=== PATIENT | female | born 1955 | race Caucasian/White ===

== ENCOUNTER 2018-02-19 15:54 | Emergency (ER) | payer OTHER, SELFPAY ==
[2018-02-19 15:55] VITALS: BP 130/84; PULSE 92; RESP 16; TEMP 36.7; O2SAT 98; BMI 29.7
--- NOTE | 2018-02-19 16:11 | ED.ABDPAIN ---
HPI - Abdominal Pain <JOHN Ku-BC - Last Filed: 02/19/18 22:15> General Chief Complaint: Abdominal Pain Stated Complaint: THINKS KIDNEY STONES ARE ACTING UP Time Seen by Provider: 02/19/18 16:11 Source: patient Mode of arrival: ambulatory Limitations: no limitations History of Present Illness HPI narrative: Patient presents with left-sided flank pain. She states that she had a kidney stone about 6 months ago and this feels exactly like that. It started this morning. She denies any fevers or diarrhea. She does complain of nausea and vomiting when the pain is bad. She also complains of lightheadedness when the pain is bad. Pain comes in spasms in her left side. She denies any chest pain or shortness of breath. She denies any other belly pain other than her flank pain. She denies urinary urgency, frequency or dysuria. Related Data Home Medications Medication Instructions Recorded Confirmed Nitrox 1 dose PO DAILY 02/19/18 02/19/18 [place] 3-6-9 1 dose DAILY 02/19/18 02/19/18 Vitamin D Oil 1 dose DAILY 02/19/18 02/19/18 multivitamin 1 tab PO DAILY 02/19/18 02/19/18 Previous Rx's Medication Instructions Recorded ondansetron 4 mg PO Q6H PRN #10 tab 02/19/18 Allergies Allergy/AdvReac Type Severity Reaction Status Date / Time oxycodone [OXYCODONE] AdvReac Mild NAUSEA, Verified 02/19/18 16:02 VOMITING Review of Systems <JOHN Ku- - Last Filed: 02/19/18 22:15> Review of Systems GENERAL: Denies chills, fatigue, malaise, fever, sweats. HEENT: Denies sinus pain, ear pain, sore throat, difficulty swallowing, dizziness. RESPIRATORY: Denies dyspnea, cough, wheezing, hemoptysis, sputum. CARDIOVASCULAR: Denies chest pain, palpitations, orthopnea, edema, GASTROINTESTINAL: See HPI : See HPI MUSCULOSKELETAL: denies weakness, joint pain, or bony pain SKIN: Denies rash, skin lesions, or other NEUROLOGIC: Denies weakness, headache, numbness, change in speech, confusion, seizures, incoordination. PSYCHIATRIC: No concerning psychosocial issues. 12 point review of systems is negative except for those stated above Exam <JOHN Ku-BC - Last Filed: 02/19/18 22:15> Narrative Exam Narrative: GENERAL: This is a well-nourished, well-developed patient, no acute distress. HEAD: Atraumatic. Normocephalic. No temporal or scalp tenderness. EYES: Pupils equal round and reactive. Extraocular motions intact. No scleral icterus. No injection or drainage. ENT: Nose without bleeding, purulent drainage or septal hematoma. Throat without erythema, tonsillar hypertrophy or exudate. Uvula midline. Airway patent. NECK: Trachea midline. No JVD or lymphadenopathy. Supple, nontender, no meningeal signs. CARDIOVASCULAR: Regular rate and rhythm without murmurs, gallops, or rubs. RESPIRATORY: Clear to auscultation. Breath sounds equal bilaterally. No wheezes, rales, or rhonchi. GASTROINTESTINAL: Abdomen soft, non-tender, nondistended. No hepato-splenomegaly, or palpable masses. No guarding. EXTREMITIES: No clubbing, cyanosis, or edema. No joint tenderness, effusion, or edema noted. BACK: Nontender without deformity or crepitance. Flank tenderness noted on left side. No CVA tenderness on right side. NEURO: AOx3. SKIN: No rash or erythema. Initial Vital Signs Initial Vital Signs: Vital Signs Temperature 98.1 F 02/19/18 15:55 Pulse Rate 92 H 02/19/18 15:55 Respiratory Rate 16 02/19/18 15:55 Blood Pressure 130/84 H 02/19/18 15:55 Pulse Oximetry 98 02/19/18 15:55 <Navin Giordano DO - Last Filed: 03/02/18 08:48> Initial Vital Signs Initial Vital Signs: Vital Signs Temperature 98.1 F 02/19/18 15:55 Pulse Rate 92 H 02/19/18 15:55 Respiratory Rate 16 02/19/18 15:55 Blood Pressure 130/84 H 02/19/18 15:55 Pulse Oximetry 98 02/19/18 15:55 Course <JOHN Ku-BC - Last Filed: 02/19/18 22:15> Hospital Course: Patient presented with flank pain, bleeding she had a repeat kidney stone. She had an IV inserted, lab work drawn, was given fluids and Zofran. The urine sample was obtained. She had a CT scan done to evaluate for possible stone, which came back negative. She passed a p.o. challenge at the end of her stay, keeping down food and fluids. I checked on her multiple times throughout her emergency department stay, she stated comfort. At the end she requested to go home. I offered her further workup given the fact that she still has pain yet did not have a stone, the patient declined further workup and stated she wanted go home. Discussed at length with patient follow-up cautions of return precautions including fever, worsening pain, inability take down fluids. Orders Ordered: Discontinued Medications Sodium Chloride (Normal Saline 0.9%) 1,000 mls @ 150 mls/hr IV CONT ANDREW Last Infusion: 02/19/18 18:13 Dose: 0 mls/hr Admin: 02/19/18 16:51 Dose: 150 mls/hr Ondansetron HCl (Zofran) 4 mg IV NOW ONE Stop: 02/19/18 16:50 Last Admin: 02/19/18 16:51 Dose: 4 mg Vital Signs - 8 hr 02/19/18 15:55 02/19/18 19:30 02/19/18 20:10 Temperature 98.1 F 97.4 F L Pulse Rate 92 H 76 78 Respiratory Rate 16 12 18 Blood Pressure 130/84 H 134/78 H Blood Pressure [Left Arm] 130/71 H Pulse Oximetry 98 97 99 <Navin Giordano, DO - Last Filed: 03/02/18 08:48> Orders Ordered: Discontinued Medications Sodium Chloride (Normal Saline 0.9%) 1,000 mls @ 150 mls/hr IV CONT ANDREW Last Infusion: 02/19/18 18:13 Dose: 0 mls/hr Admin: 02/19/18 16:51 Dose: 150 mls/hr Ondansetron HCl (Zofran) 4 mg IV NOW ONE Stop: 02/19/18 16:50 Last Admin: 02/19/18 16:51 Dose: 4 mg Vital Signs - 8 hr 02/19/18 15:55 02/19/18 19:30 02/19/18 20:10 Temperature 98.1 F 97.4 F L Pulse Rate 92 H 76 78 Respiratory Rate 16 12 18 Blood Pressure 130/84 H 134/78 H Blood Pressure [Left Arm] 130/71 H Pulse Oximetry 98 97 99 MDM - Abdominal Pain <Juani Carmen, BLACK [employer] ROLLER-BC - Last Filed: 02/19/18 22:15> Differential Diagnosis Differential diagnosis: Likely abdominal pain, calculus of kidney and constipation Lab Data Attestation: I reviewed the patient's lab results. Result diagrams: 02/19/18 16:27 02/19/18 16:27 Lab Results 02/19/18 02/19/18 Range/Units 16:27 16:27 WBC 7.0 (4.5-11.0) X10^3/uL RBC 4.26 (4.0-5.2) X10^6/uL Hgb 13.1 (12.0-16.0) g/dL Hct 39.4 (36-46) % MCV 92.5 (80-100) fL MCH 30.6 (26-34) PG MCHC 33.1 (30-36) % RDW 13.7 (11.6-14.8) % Plt Count 252 (150-400) X10^3/uL Neut % (Auto) 70.0 (50-75) % Lymph % (Auto) 22.9 L (25-40) % [place] % (Auto) 5.1 (3-14) % Eos % (Auto) 1.1 L (2-4) % Baso % (Auto) 0.9 (0-2) % Neut # (Auto) 4900 (1645-3583) /uL Sodium 139 (137-145) mmol/L Potassium 4.1 (3.4-5.1) mmol/L Chloride 103 (98-107) mmol/L Carbon Dioxide 27 (22-32) mmol/L BUN 10 (7-17) mg/dL Creatinine 0.70 (0.52-1.04) mg/dL Estimated GFR > 60.0 (>60) mL/min BUN/Creatinine Ratio 14.3 (6-22) Glucose 107 (80-110) mg/dL Calcium 9.3 (8.4-10.2) mg/dL Total Bilirubin 1.0 (0.2-1.3) mg/dL AST 31 (14-36) IU/L ALT 33 (9-52) IU/L Alkaline Phosphatase 73 (38-126) U/L Total Protein 6.8 (6.3-8.2) g/dL Albumin 3.8 (3.5-5.0) g/dL Globulin 3.0 (1.7-4.1) g/dL Albumin/Globulin Ratio 1.3 (1.0-2.8) Lipase 34 (23-300) U/L Imaging Data CT scan - pelvis: Radiologist's impression: [address] [address] [address] Scan Report Signed Patient: Luz Marina Rodriguez MR#: [id number] : 1955 Acct:[id number] Age/Sex: 62 / F Date of Service: 02/19/18 Loc: ED Accession Number: [id number] Procedure: CT kidney ureter bladder (KUB) Ordering Provider: Juani CarmenP- PROCEDURE: CT KIDNEY URETER BLADDER (KUB) INDICATIONS: flank pain, suspected nephrolithiasis TECHNIQUE: Noncontrast 5 mm thick sections acquired from the diaphragms to the symphysis. 5 mm thick coronal and sagittal reformats were then performed. For radiation dose reduction, the following was used: automated exposure control, adjustment of mA and/or kV according to patient size. COMPARISON: [facility], CT, CT ABDOMEN ADRENAL PROTOCOL, 09/22/2017, 10:14. FINDINGS: Image quality: Excellent. Lung bases: Lung bases are clear. Heart size is normal. Urinary system: Both kidneys are normal in size. No kidney stones. No hydronephrosis or perinephric fat stranding. Both ureters appear non-dilated throughout their expected courses. Bladder wall thickness is normal; no calcified bladder stones. Other solid organs: Liver is normal in size. Gallbladder is present. Pancreas is normal in contours. Spleen is normal in size. Again noted is a 2 cm right renal nodule which demonstrates low density consistent with a benign adrenal adenoma. Peritoneum and bowel: Diverticulosis. No evidence of acute diverticulitis. There is wall thickening in the proximal ascending colon which is indeterminate. A normal appendix is identified. Postoperative changes in the stomach. Nodes and vessels: No retroperitoneal or mesenteric adenopathy by size criteria. Aorta and inferior vena cava are normal in caliber. Abdominal wall: No ventral hernias. Pelvis: No free pelvic fluid. No inguinal hernias or adenopathy. Bones: No suspicious bony lesions. No vertebral body compression fractures. Right total hip arthroplasty. IMPRESSION: 1. Diverticulosis with no evidence of acute diverticulitis. No renal or ureteral calculi. No etiology for the patient's left flank pain identified. 2. Wall thickening in the ascending colon is indeterminate. Consider correlation with colonoscopy if screening colonoscopy has not been recently performed. 3. Stable right adrenal nodule consistent with a benign adrenal adenoma. Dictated by: Ernst Bowman M.D. on 02/19/2018 at 18:06 Approved by: Ernst Bowman M.D. on 02/19/2018 at 18:14 ECG Data Attestation: I personally reviewed and interpreted this ECG as follows: Interpretation: Normal sinus rhythm. Ventricular rate 64. No ST changes. ME interval 167 MDM Narrative Medical decision making narrative: Patient had thorough evaluation the emergency department including a CT scan which showed no cause of flank pain, CBC CMP and lipase which all came back normal. EKG came back within sinus rhythm. Her urine had no indications of infection. She declined any further workup for vomiting at this point time and states she will come back if she had to. I gave her prescription of Zofran and discussed return precautions of worsening abdominal pain, fever, inability keep down fluids. <Navin Giordano, DO - Last Filed: 03/02/18 08:48> Lab Data Lab Results 02/19/18 02/19/18 Range/Units 16:27 16:27 WBC 7.0 (4.5-11.0) X10^3/uL RBC 4.26 (4.0-5.2) X10^6/uL Hgb 13.1 (12.0-16.0) g/dL Hct 39.4 (36-46) % MCV 92.5 (80-100) fL MCH 30.6 (26-34) PG MCHC 33.1 (30-36) % RDW 13.7 (11.6-14.8) % Plt Count 252 (150-400) X10^3/uL Neut % (Auto) 70.0 (50-75) % Lymph % (Auto) 22.9 L (25-40) % [place] % (Auto) 5.1 (3-14) % Eos % (Auto) 1.1 L (2-4) % Baso % (Auto) 0.9 (0-2) % Neut # (Auto) 4900 (3528-7229) /uL Sodium 139 (137-145) mmol/L Potassium 4.1 (3.4-5.1) mmol/L Chloride 103 (98-107) mmol/L Carbon Dioxide 27 (22-32) mmol/L BUN 10 (7-17) mg/dL Creatinine 0.70 (0.52-1.04) mg/dL Estimated GFR > 60.0 (>60) mL/min BUN/Creatinine Ratio 14.3 (6-22) Glucose 107 (80-110) mg/dL Calcium 9.3 (8.4-10.2) mg/dL Total Bilirubin 1.0 (0.2-1.3) mg/dL AST 31 (14-36) IU/L ALT 33 (9-52) IU/L Alkaline Phosphatase 73 (38-126) U/L Total Protein 6.8 (6.3-8.2) g/dL Albumin 3.8 (3.5-5.0) g/dL Globulin 3.0 (1.7-4.1) g/dL Albumin/Globulin Ratio 1.3 (1.0-2.8) Lipase 34 (23-300) U/L Discharge Plan Departure Patient Disposition: Home, Self-Care Clinical Impression: Vomiting, Acute left flank pain Discharge Date/Time: 02/19/18 20:32 Interventions: ED Discharge Assessment Last Done: 02/19/18 20:10 Instructions: DI for Abdominal Pain-Adult, DI for Vomiting -- Adult Activity Restrictions/Additional Instructions: You came in today with flank pain and vomiting. We did a CT scan of your abdomen and pelvis which found no kidney stone. Your urine test and blood work came back normal. I have given you a prescription for Zofran which is for nausea and vomiting. I would like you to follow up with her primary care provider. Come back to the emergency department if you have any sudden onset of chest pain, shortness of breath, confusion or severe pain. Follow-up if you cannot keep down fluids or if you develop fever. Prescriptions: New ondansetron 4 mg tablet,disintegrating 4 mg PO Q6H PRN (Reason: nausea and vomiting) Qty: 10 RF: 0 No Action multivitamin Tablet 1 tab PO DAILY RF: 0 Nitrox 1 dose PO DAILY RF: 0 [place] 3-6-9 1 dose DAILY RF: 0 Vitamin D Oil 1 dose DAILY RF: 0 Referrals: Teresa Sorensen PA-C [Primary Care Provider] - <Navin Giordano DO - Last Filed: 03/02/18 08:48> Cosign ED Attending Jaimee Attestation: I was immediately available in the department for consultation. This documentation has been reviewed and I agree with assessment and plan. I attempted to contact TAYLOR Carmen to see if the thickening of the ascending colon noted on CT scan was discussed with the patient because it was not clear from the documentation above. As I was unable to, I contacted the patient directly and left a voicemail message on 03/02/2018 at 8:45 a.m., requesting that she follow up with her primary provider for colonoscopy if she has not had one recently. Supervised by Navin Giordano DO
[2018-02-19] MEDS: ONDANSETRON 4 MG/2 ML INJ IV (16:51)
[2018-02-19] MEDS: SODIUM CHLORIDE 0.9% 1,000 ML 150 ML IV (16:51)
[2018-02-19 16:57] LABS: Add Manual Diff / Slide Review NO; Basophils Percent Auto 0.9 % (0-2); Eosinophils Percent Auto 1.1 % (2-4); Hematocrit 39.4 % (36-46); Hemoglobin 13.1 g/dL (12.0-16.0); Lymphocytes Percent Auto 22.9 % (25-40); Mean Corpuscular HGB Conc 33.1 % (30-36); Mean Corpuscular Hemoglobin 30.6 PG (26-34); Mean Corpuscular Volume 92.5 fL (80-100); Monocytes Percent Auto 5.1 % (3-14); Neutrophils Absolute Auto 4900 /uL (3000-5900); Platelet Count 252 X10^3/uL (150-400); Red Blood Cell Count 4.26 X10^6/uL (4.0-5.2); Red Cell Distribution Width 13.7 % (11.6-14.8)
[2018-02-19 17:02] LABS: Alanine Aminotransferase 33 IU/L (9-52); Albumin 3.8 g/dL (3.5-5.0); Albumin Globulin Ratio 1.3 (1.0-2.8); Alkaline Phosphatase 73 U/L (38-126); Aspartate Aminotransferase 31 IU/L (14-36); BUN Creatinine Ratio 14.3 (6-22); Blood Urea Nitrogen 10 mg/dL (7-17); Calcium 9.3 mg/dL (8.4-10.2); Carbon Dioxide 27 mmol/L (22-32); Chloride 103 mmol/L (98-107); Estimated Glomerular Filt Rate > 60.0 mL/min (>60); Glucose 107 mg/dL (80-110); HEMOLYSIS 17 (0-50); Lipase 34 U/L (23-300); Potassium 4.1 mmol/L (3.4-5.1); Sodium 139 mmol/L (137-145); Total Protein 6.8 g/dL (6.3-8.2)
--- NOTE | 2018-02-19 17:23 | DI.CT.S_ITS ---
PROCEDURE: CT KIDNEY URETER BLADDER (KUB) INDICATIONS: flank pain, suspected nephrolithiasis TECHNIQUE: Noncontrast 5 mm thick sections acquired from the diaphragms to the symphysis. 5 mm thick coronal and sagittal reformats were then performed. For radiation dose reduction, the following was used: automated exposure control, adjustment of mA and/or kV according to patient size. COMPARISON: [facility], CT, CT ABDOMEN ADRENAL PROTOCOL, 09/22/2017, 10:14. FINDINGS: Image quality: Excellent. Lung bases: Lung bases are clear. Heart size is normal. Urinary system: Both kidneys are normal in size. No kidney stones. No hydronephrosis or perinephric fat stranding. Both ureters appear non-dilated throughout their expected courses. Bladder wall thickness is normal; no calcified bladder stones. Other solid organs: Liver is normal in size. Gallbladder is present. Pancreas is normal in contours. Spleen is normal in size. Again noted is a 2 cm right renal nodule which demonstrates low density consistent with a benign adrenal adenoma. Peritoneum and bowel: Diverticulosis. No evidence of acute diverticulitis. There is wall thickening in the proximal ascending colon which is indeterminate. A normal appendix is identified. Postoperative changes in the stomach. Nodes and vessels: No retroperitoneal or mesenteric adenopathy by size criteria. Aorta and inferior vena cava are normal in caliber. Abdominal wall: No ventral hernias. Pelvis: No free pelvic fluid. No inguinal hernias or adenopathy. Bones: No suspicious bony lesions. No vertebral body compression fractures. Right total hip arthroplasty. IMPRESSION: 1. Diverticulosis with no evidence of acute diverticulitis. No renal or ureteral calculi. No etiology for the patient's left flank pain identified. 2. Wall thickening in the ascending colon is indeterminate. Consider correlation with colonoscopy if screening colonoscopy has not been recently performed. 3. Stable right adrenal nodule consistent with a benign adrenal adenoma. Dictated by: Ernst Bowman M.D. on 02/19/2018 at 18:06 Approved by: Ernst Bowman M.D. on 02/19/2018 at 18:14
--- NOTE | 2018-02-19 18:01 | ED_ITS ---
HPI - Abdominal Pain <JOHN Ku-BC - Last Filed: 02/19/18 22:15> General Chief Complaint: Abdominal Pain Stated Complaint: THINKS KIDNEY STONES ARE ACTING UP Time Seen by Provider: 02/19/18 16:11 Source: patient Mode of arrival: ambulatory Limitations: no limitations History of Present Illness HPI narrative: Patient presents with left-sided flank pain. She states that she had a kidney stone about 6 months ago and this feels exactly like that. It started this morning. She denies any fevers or diarrhea. She does complain of nausea and vomiting when the pain is bad. She also complains of lightheadedness when the pain is bad. Pain comes in spasms in her left side. She denies any chest pain or shortness of breath. She denies any other belly pain other than her flank pain. She denies urinary urgency, frequency or dysuria. Related Data Home Medications Medication Instructions Recorded Confirmed Nitrox 1 dose PO DAILY 02/19/18 02/19/18 Empire 3-6-9 1 dose DAILY 02/19/18 02/19/18 Vitamin D Oil 1 dose DAILY 02/19/18 02/19/18 multivitamin 1 tab PO DAILY 02/19/18 02/19/18 Previous Rx's Medication Instructions Recorded ondansetron 4 mg PO Q6H PRN #10 tab 02/19/18 Allergies Allergy/AdvReac Type Severity Reaction Status Date / Time oxycodone [OXYCODONE] AdvReac Mild NAUSEA, Verified 02/19/18 16:02 VOMITING Review of Systems <JOHN Ku- - Last Filed: 02/19/18 22:15> Review of Systems GENERAL: Denies chills, fatigue, malaise, fever, sweats. HEENT: Denies sinus pain, ear pain, sore throat, difficulty swallowing, dizziness. RESPIRATORY: Denies dyspnea, cough, wheezing, hemoptysis, sputum. CARDIOVASCULAR: Denies chest pain, palpitations, orthopnea, edema, GASTROINTESTINAL: See HPI : See HPI MUSCULOSKELETAL: denies weakness, joint pain, or bony pain SKIN: Denies rash, skin lesions, or other NEUROLOGIC: Denies weakness, headache, numbness, change in speech, confusion, seizures, incoordination. PSYCHIATRIC: No concerning psychosocial issues. 12 point review of systems is negative except for those stated above Exam <JOHN Ku-BC - Last Filed: 02/19/18 22:15> Narrative Exam Narrative: GENERAL: This is a well-nourished, well-developed patient, no acute distress. HEAD: Atraumatic. Normocephalic. No temporal or scalp tenderness. EYES: Pupils equal round and reactive. Extraocular motions intact. No scleral icterus. No injection or drainage. ENT: Nose without bleeding, purulent drainage or septal hematoma. Throat without erythema, tonsillar hypertrophy or exudate. Uvula midline. Airway patent. NECK: Trachea midline. No JVD or lymphadenopathy. Supple, nontender, no meningeal signs. CARDIOVASCULAR: Regular rate and rhythm without murmurs, gallops, or rubs. RESPIRATORY: Clear to auscultation. Breath sounds equal bilaterally. No wheezes , rales, or rhonchi. GASTROINTESTINAL: Abdomen soft, non-tender, nondistended. No hepato-splenomegaly , or palpable masses. No guarding. EXTREMITIES: No clubbing, cyanosis, or edema. No joint tenderness, effusion, or edema noted. BACK: Nontender without deformity or crepitance. Flank tenderness noted on left side. No CVA tenderness on right side. NEURO: AOx3. SKIN: No rash or erythema. Initial Vital Signs Initial Vital Signs: Vital Signs Temperature 98.1 F 02/19/18 15:55 Pulse Rate 92 H 02/19/18 15:55 Respiratory Rate 16 02/19/18 15:55 Blood Pressure 130/84 H 02/19/18 15:55 Pulse Oximetry 98 02/19/18 15:55 <Navin Giordano DO - Last Filed: 03/02/18 08:48> Initial Vital Signs Initial Vital Signs: Vital Signs Temperature 98.1 F 02/19/18 15:55 Pulse Rate 92 H 02/19/18 15:55 Respiratory Rate 16 02/19/18 15:55 Blood Pressure 130/84 H 02/19/18 15:55 Pulse Oximetry 98 02/19/18 15:55 Course <JOHN Ku-BC - Last Filed: 02/19/18 22:15> Hospital Course: Patient presented with flank pain, bleeding she had a repeat kidney stone. She had an IV inserted, lab work drawn, was given fluids and Zofran. The urine sample was obtained. She had a CT scan done to evaluate for possible stone, which came back negative. She passed a p.o. challenge at the end of her stay, keeping down food and fluids. I checked on her multiple times throughout her emergency department stay, she stated comfort. At the end she requested to go home. I offered her further workup given the fact that she still has pain yet did not have a stone, the patient declined further workup and stated she wanted go home. Discussed at length with patient follow-up cautions of return precautions including fever, worsening pain, inability take down fluids. Orders Ordered: Discontinued Medications Sodium Chloride (Normal Saline 0.9%) 1,000 mls @ 150 mls/hr IV CONT ANDREW Last Infusion: 02/19/18 18:13 Dose: 0 mls/hr Admin: 02/19/18 16:51 Dose: 150 mls/hr Ondansetron HCl (Zofran) 4 mg IV NOW ONE Stop: 02/19/18 16:50 Last Admin: 02/19/18 16:51 Dose: 4 mg Vital Signs - 8 hr 02/19/18 15:55 02/19/18 19:30 02/19/18 20:10 Temperature 98.1 F 97.4 F L Pulse Rate 92 H 76 78 Respiratory Rate 16 12 18 Blood Pressure 130/84 H 134/78 H Blood Pressure [Left Arm] 130/71 H Pulse Oximetry 98 97 99 <Navin Giordano, DO - Last Filed: 03/02/18 08:48> Orders Ordered: Discontinued Medications Sodium Chloride (Normal Saline 0.9%) 1,000 mls @ 150 mls/hr IV CONT ANDREW Last Infusion: 02/19/18 18:13 Dose: 0 mls/hr Admin: 02/19/18 16:51 Dose: 150 mls/hr Ondansetron HCl (Zofran) 4 mg IV NOW ONE Stop: 02/19/18 16:50 Last Admin: 02/19/18 16:51 Dose: 4 mg Vital Signs - 8 hr 02/19/18 15:55 02/19/18 19:30 02/19/18 20:10 Temperature 98.1 F 97.4 F L Pulse Rate 92 H 76 78 Respiratory Rate 16 12 18 Blood Pressure 130/84 H 134/78 H Blood Pressure [Left Arm] 130/71 H Pulse Oximetry 98 97 99 MDM - Abdominal Pain <Juani Carmen, RAW SAMPLER-BC - Last Filed: 02/19/18 22:15> Differential Diagnosis Differential diagnosis: Likely abdominal pain, calculus of kidney and constipation Lab Data Attestation: I reviewed the patient's lab results. Result diagrams: 02/19/18 16:27 02/19/18 16:27 Lab Results 02/19/18 02/19/18 Range/Units 16:27 16:27 WBC 7.0 (4.5-11.0) X10^3/uL RBC 4.26 (4.0-5.2) X10^6/uL Hgb 13.1 (12.0-16.0) g/dL Hct 39.4 (36-46) % MCV 92.5 (80-100) fL MCH 30.6 (26-34) PG MCHC 33.1 (30-36) % RDW 13.7 (11.6-14.8) % Plt Count 252 (150-400) X10^3/uL Neut % (Auto) 70.0 (50-75) % Lymph % (Auto) 22.9 L (25-40) % [place] % (Auto) 5.1 (3-14) % Eos % (Auto) 1.1 L (2-4) % Baso % (Auto) 0.9 (0-2) % Neut # (Auto) 4900 (2301-0684) /uL Sodium 139 (137-145) mmol/L Potassium 4.1 (3.4-5.1) mmol/L Chloride 103 (98-107) mmol/L Carbon Dioxide 27 (22-32) mmol/L BUN 10 (7-17) mg/dL Creatinine 0.70 (0.52-1.04) mg/dL Estimated GFR > 60.0 (>60) mL/min BUN/Creatinine Ratio 14.3 (6-22) Glucose 107 (80-110) mg/dL Calcium 9.3 (8.4-10.2) mg/dL Total Bilirubin 1.0 (0.2-1.3) mg/dL AST 31 (14-36) IU/L ALT 33 (9-52) IU/L Alkaline Phosphatase 73 (38-126) U/L Total Protein 6.8 (6.3-8.2) g/dL Albumin 3.8 (3.5-5.0) g/dL Globulin 3.0 (1.7-4.1) g/dL Albumin/Globulin Ratio 1.3 (1.0-2.8) Lipase 34 (23-300) U/L Imaging Data CT scan - pelvis: Radiologist's impression: [address] [address] [address] Scan Report Signed Patient: Luz Marina Rodriguez MR#: [id number] : 1955 Acct:[id number] Age/Sex: 62 / F Date of Service: 02/19/18 Loc: ED Accession Number: [id number] Procedure: CT kidney ureter bladder (KUB) Ordering Provider: Juani CarmenP- PROCEDURE: CT KIDNEY URETER BLADDER (KUB) INDICATIONS: flank pain, suspected nephrolithiasis TECHNIQUE: Noncontrast 5 mm thick sections acquired from the diaphragms to the symphysis. 5 mm thick coronal and sagittal reformats were then performed. For radiation dose reduction, the following was used: automated exposure control, adjustment of mA and/or kV according to patient size. COMPARISON: [facility], CT, CT ABDOMEN ADRENAL PROTOCOL, 09/22/2017 , 10:14. FINDINGS: Image quality: Excellent. Lung bases: Lung bases are clear. Heart size is normal. Urinary system: Both kidneys are normal in size. No kidney stones. No hydronephrosis or perinephric fat stranding. Both ureters appear non-dilated throughout their expected courses. Bladder wall thickness is normal; no calcified bladder stones. Other solid organs: Liver is normal in size. Gallbladder is present. Pancreas is normal in contours. Spleen is normal in size. Again noted is a 2 cm right renal nodule which demonstrates low density consistent with a benign adrenal adenoma. Peritoneum and bowel: Diverticulosis. No evidence of acute diverticulitis. There is wall thickening in the proximal ascending colon which is indeterminate. A normal appendix is identified. Postoperative changes in the stomach. Nodes and vessels: No retroperitoneal or mesenteric adenopathy by size criteria. Aorta and inferior vena cava are normal in caliber. Abdominal wall: No ventral hernias. Pelvis: No free pelvic fluid. No inguinal hernias or adenopathy. Bones: No suspicious bony lesions. No vertebral body compression fractures. Right total hip arthroplasty. IMPRESSION: 1. Diverticulosis with no evidence of acute diverticulitis. No renal or ureteral calculi. No etiology for the patient's left flank pain identified. 2. Wall thickening in the ascending colon is indeterminate. Consider correlation with colonoscopy if screening colonoscopy has not been recently performed. 3. Stable right adrenal nodule consistent with a benign adrenal adenoma. Dictated by: Ernst Bowman M.D. on 02/19/2018 at 18:06 Approved by: Ernst Bowman M.D. on 02/19/2018 at 18:14 ECG Data Attestation: I personally reviewed and interpreted this ECG as follows: Interpretation: Normal sinus rhythm. Ventricular rate 64. No ST changes. RI interval 167 MDM Narrative Medical decision making narrative: Patient had thorough evaluation the emergency department including a CT scan which showed no cause of flank pain, CBC CMP and lipase which all came back normal. EKG came back within sinus rhythm. Her urine had no indications of infection. She declined any further workup for vomiting at this point time and states she will come back if she had to. I gave her prescription of Zofran and discussed return precautions of worsening abdominal pain, fever, inability keep down fluids. <Navin Giordano, DO - Last Filed: 03/02/18 08:48> Lab Data Lab Results 02/19/18 02/19/18 Range/Units 16:27 16:27 WBC 7.0 (4.5-11.0) X10^3/uL RBC 4.26 (4.0-5.2) X10^6/uL Hgb 13.1 (12.0-16.0) g/dL Hct 39.4 (36-46) % MCV 92.5 (80-100) fL MCH 30.6 (26-34) PG MCHC 33.1 (30-36) % RDW 13.7 (11.6-14.8) % Plt Count 252 (150-400) X10^3/uL Neut % (Auto) 70.0 (50-75) % Lymph % (Auto) 22.9 L (25-40) % [place] % (Auto) 5.1 (3-14) % Eos % (Auto) 1.1 L (2-4) % Baso % (Auto) 0.9 (0-2) % Neut # (Auto) 4900 (9786-8562) /uL Sodium 139 (137-145) mmol/L Potassium 4.1 (3.4-5.1) mmol/L Chloride 103 (98-107) mmol/L Carbon Dioxide 27 (22-32) mmol/L BUN 10 (7-17) mg/dL Creatinine 0.70 (0.52-1.04) mg/dL Estimated GFR > 60.0 (>60) mL/min BUN/Creatinine Ratio 14.3 (6-22) Glucose 107 (80-110) mg/dL Calcium 9.3 (8.4-10.2) mg/dL Total Bilirubin 1.0 (0.2-1.3) mg/dL AST 31 (14-36) IU/L ALT 33 (9-52) IU/L Alkaline Phosphatase 73 (38-126) U/L Total Protein 6.8 (6.3-8.2) g/dL Albumin 3.8 (3.5-5.0) g/dL Globulin 3.0 (1.7-4.1) g/dL Albumin/Globulin Ratio 1.3 (1.0-2.8) Lipase 34 (23-300) U/L Discharge Plan Departure Patient Disposition: Home, Self-Care Clinical Impression: Vomiting, Acute left flank pain Discharge Date/Time: 02/19/18 20:32 Interventions: ED Discharge Assessment Last Done: 02/19/18 20:10 Instructions: DI for Abdominal Pain-Adult, DI for Vomiting -- Adult Activity Restrictions/Additional Instructions: You came in today with flank pain and vomiting. We did a CT scan of your abdomen and pelvis which found no kidney stone. Your urine test and blood work came back normal. I have given you a prescription for Zofran which is for nausea and vomiting. I would like you to follow up with her primary care provider. Come back to the emergency department if you have any sudden onset of chest pain, shortness of breath, confusion or severe pain. Follow-up if you cannot keep down fluids or if you develop fever. Prescriptions: New ondansetron 4 mg tablet,disintegrating 4 mg PO Q6H PRN (Reason: nausea and vomiting) Qty: 10 RF: 0 No Action multivitamin Tablet 1 tab PO DAILY RF: 0 Nitrox 1 dose PO DAILY RF: 0 Empire 3-6-9 1 dose DAILY RF: 0 Vitamin D Oil 1 dose DAILY RF: 0 Referrals: Teresa Sorensen PA-C [Primary Care Provider] - <Navin Giordano DO - Last Filed: 03/02/18 08:48> Cosign ED Attending Jaimee Attestation: I was immediately available in the department for consultation. This documentation has been reviewed and I agree with assessment and plan. I attempted to contact TAYLOR Carmen to see if the thickening of the ascending colon noted on CT scan was discussed with the patient because it was not clear from the documentation above. As I was unable to, I contacted the patient directly and left a voicemail message on 03/02/2018 at 8:45 a.m., requesting that she follow up with her primary provider for colonoscopy if she has not had one recently. Supervised by Navin Giordano DO
--- NOTE | 2018-02-19 19:26 | PC.NURSE ---
Patient tolerating 7-up with crackers;
[2018-02-19 19:30] VITALS: BP 130/71; PULSE 76; RESP 12; O2SAT 97
[2018-02-19 20:10] VITALS: BP 134/78; PULSE 78; RESP 18; TEMP 36.3; O2SAT 99
== END 2018-02-19 20:32 | disposition home or self-care (01) ==
PROVIDERS: Emergency Provider Nurse Practitioner Family; Family Provider Physician Assistant; PCP Physician Assistant
DX: R11.10 Vomiting, unspecified (principal); R10.9 Unspecified abdominal pain
CPT/HCPCS: 36591; 74176; 80053; 81003; 83690; 85025; 93005; 96361; 96374; 99283; 99285; J2405

== ENCOUNTER → 2018-04-08 12:51 | Outpatient (CLI) | payer OTHER, SELFPAY ==
--- NOTE | 2018-04-08 | DI.MG.S_ITS ---
BILATERAL DIGITAL SCREENING MAMMOGRAM 3D/2D WITH CAD: 04/08/2018 CLINICAL: Routine screening. Comparison is made to exams dated: 09/03/2016 mammogram - [facility] and 09/28/2014 mammogram - [facility]. The tissue of both breasts is predominantly fatty. Current study was also evaluated with a Computer Aided Detection (CAD) system. No significant masses, calcifications, or other findings are seen in either breast. There has been no significant interval change. IMPRESSION: NEGATIVE There is no mammographic evidence of malignancy. A 1 year screening mammogram is recommended. This exam was interpreted at Station ID: [id number]. NOTE: For mammograms, a report in lay terms will be sent to the patient. Approximately 15% of breast malignancies will not be visualized mammographically. In the management of a palpable breast mass, a negative mammogram must not discourage biopsy of a clinically suspicious lesion. Electronically Signed By: Ernst coronado/ruchi:04/09/2018 09:59:27 copy to: SANTOS BURGESS letter sent: Normal Exam ACR BI-RADS Category 1: Negative [id number]
--- NOTE | 2018-04-08 | DI.RAD.S_ITS ---
PROCEDURE: FL BARIUM SWALLOW INDICATIONS: DYSPHAGIA NAUSEA COMPARISON: None. FINDINGS: Function: There is normal esophageal peristalsis.-induced gastroesophageal reflux with Valsalva to the level above the tristan. There is normal transit of a calibrated barium tablet through the esophagus into the stomach. Morphology: Limited images of the stomach demonstrate an appearance consistent with history of gastric sleeve surgery. A moderate sliding hiatal hernia is present. Within the herniation is intermittently seen a 1 cm sized outpouching that has the appearance of an ulceration. IMPRESSION: 1. Moderate hiatal hernia with positive induced reflux. 2. Suspected ulceration in the herniated fundus of the stomach along the lesser curvature aspect. Finding could be related to prior surgical history however endoscopic evaluation is recommended. 3. Elongation and apparent constriction in the proximal body of the stomach compatible with surgical history. Dictated by: Alexandro Cueto M.D. on 04/08/2018 at 14:37 Approved by: Alexandro Cueto M.D. on 04/08/2018 at 14:49
== END ==
PROVIDERS: Family Provider Nurse Practitioner Family; PCP Nurse Practitioner Family; Visit Provider Physician Assistant
DX: Z12.31 Encounter for screening mammogram for malignant neoplasm of breast (principal); K21.9 Gastro-esophageal reflux disease without esophagitis; K44.9 Diaphragmatic hernia without obstruction or gangrene; R13.10 Dysphagia, unspecified; R11.0 Nausea
CPT/HCPCS: 74220; 77063; 77067

== ENCOUNTER 2018-10-15 11:59 | Emergency (ER) | payer OTHER, SELFPAY ==
[2018-10-15 12:05] VITALS: BP 126/53; PULSE 78; RESP 15; TEMP 36.8; O2SAT 100; BMI 29.9
--- NOTE | 2018-10-15 12:46 | ED.SYNCOPE ---
HPI - Syncope General Chief Complaint: Syncope Stated Complaint: fainted yesterday, told to be seen. Time Seen by Provider: 10/15/18 12:28 Source: patient Mode of arrival: ambulatory Limitations: no limitations History of Present Illness HPI narrative: Patient is a 63-year-old female who presents after syncopal episode yesterday. She was sitting talking with a builder when she suddenly passed out. She thinks that she is had a hypoglycemic episode. She had gastric sleeve 2 years ago, she has had hypoglycemic episodes. Yesterday she had breakfast at 8:30 a.m. nothing again until 230 after she passed out. She was feeling okay last night but today she says she just still does not feel quite right. No dizziness or lightheadedness today no heart palpitations. She does have acid reflux she has chronic ongoing acid reflux ever since her gastric sleeve surgery. No further episodes of syncope MD complaint: loss of consciousness Related Data Home Medications Medication Instructions Recorded Confirmed No Known Home Medications 10/15/18 10/15/18 Allergies Allergy/AdvReac Type Severity Reaction Status Date / Time oxycodone [OXYCODONE] AdvReac Mild NAUSEA, Verified 02/19/18 16:02 VOMITING Review of Systems Review of Systems ROS Unobtainable: All systems reviewed & are unremarkable except as noted in HPI and below Constitutional Denies chills, Denies fever(s), Denies lethargy and Denies weakness Eyes Denies change in vision, Denies eye discharge, Denies irritation and Denies loss of vision Cardiovascular Reports syncope, Denies dyspnea and Denies dyspnea on exertion Respiratory Denies cough, Denies dyspnea, Denies dyspnea on exertion and Denies wheezing Gastrointestinal Gastrointestinal: Denies abdominal pain, Denies change in bowel habits, Denies diarrhea, Denies nausea and Denies vomiting Genitourinary Denies hematuria, Denies flank pain, Denies urinary incontinence and Denies urinary urgency Integumentary/Breasts Denies pruritus, Denies erythema, Denies rash and Denies wounds Neurologic Reports syncope, Denies loss of vision and Denies weakness Allergic/Immunologic Denies wheezing PFSH Medical History GERD (gastroesophageal reflux disease) (Acute) Surgical History Status post gastrectomy (Acute) Social History Smoking Status: Never smoker alcohol intake: never substance use type: does not use Social History Smoking Status: Never smoker alcohol intake: never substance use type: does not use Exam Initial Vital Signs Initial Vital Signs: Vital Signs Temperature 98.3 F 10/15/18 12:05 Pulse Rate 78 10/15/18 12:05 Respiratory Rate 15 10/15/18 12:05 Blood Pressure 126/53 L 10/15/18 12:05 Pulse Oximetry 100 10/15/18 12:05 GENERAL: Well-appearing, well-nourished and in no acute distress. HEENT: Head atraumatic,EOMI, pupils reactive, CARDIOVASCULAR: Regular rate and rhythm without murmurs, rubs or gallops. RESPIRATORY: Breath sounds equal bilaterally, no wheezes rales or rhonchi. ABDOMEN: Soft, nontender. Normoactive bowel sounds all 4 quadrants. No guarding or rebound. EXTREMITIES: Normal range of motion, no clubbing or edema. Neurovascularly intact NEUROLOGICAL: Alert and oriented x4.Normal gait and speech. Cranial nerves II through XII grossly intact. SKIN: Warm, dry, no laceration, no petechiae, no rashes or lesions. Course Orders Ordered: ED Orders 10/15/18 12:07 EKG-12 Lead Routine 10/15/18 13:10 Complete Blood Count AUTO DIFF Stat Comprehensive Metabolic Panel Stat Troponin & CK Cardiac Panel Stat Discontinued Medications Sodium Chloride (Normal Saline 0.9%) 1,000 mls @ 1,000 mls/hr IV BOLUS ONE Stop: 10/15/18 13:42 Last Infusion: 10/15/18 14:10 Dose: 0 mls/hr Admin: 10/15/18 13:11 Dose: 1,000 mls/hr Ondansetron HCl (Zofran) 4 mg IV NOW ONE Stop: 10/15/18 12:44 Last Admin: 10/15/18 13:11 Dose: 4 mg Pantoprazole Sodium (Protonix) 40 mg IV NOW ONE Stop: 10/15/18 12:44 Last Admin: 10/15/18 13:11 Dose: 40 mg Vital Signs - 8 hr 10/15/18 12:05 10/15/18 13:07 10/15/18 14:03 Temperature 98.3 F Pulse Rate 78 77 64 Respiratory Rate 15 17 16 Blood Pressure 126/53 L Blood Pressure [Right Arm] 100/70 101/63 Pulse Oximetry 100 99 100 10/15/18 14:10 Temperature Pulse Rate 70 Respiratory Rate 15 Blood Pressure 101/63 Blood Pressure [Right Arm] Pulse Oximetry 98 MDM - Syncope Lab Data Attestation: I reviewed the patient's lab results. Result diagrams: 10/15/18 13:10 10/15/18 13:10 Lab Results 10/15/18 10/15/18 Range/Units 13:10 13:10 WBC 5.6 (4.5-11.0) X10^3/uL RBC 4.35 (4.0-5.2) X10^6/uL Hgb 13.3 (12.0-16.0) g/dL Hct 40.7 (36-46) % MCV 93.6 (80-100) fL MCH 30.5 (26-34) PG MCHC 32.6 (30-36) % RDW 14.0 (11.6-14.8) % Plt Count 242 (150-400) X10^3/uL Neut % (Auto) 54.6 (50-75) % Lymph % (Auto) 33.9 (25-40) % [place] % (Auto) 8.5 (3-14) % Eos % (Auto) 2.2 (2-4) % Baso % (Auto) 0.8 (0-2) % Neut # (Auto) 3000 (4196-1464) /uL Lymph # (Auto) 1900 (2107-1963) /uL [place] # (Auto) 500 (0-900) /uL Eos # (Auto) 100 (0-450) /uL Baso # (Auto) 0 (0-100) /uL Sodium 140 (137-145) mmol/L Potassium 4.1 (3.4-5.1) mmol/L Chloride 105 (98-107) mmol/L Carbon Dioxide 27 (22-32) mmol/L BUN 17 (7-17) mg/dL Creatinine 0.90 (0.52-1.04) mg/dL Estimated GFR > 60.0 (>60) mL/min BUN/Creatinine Ratio 18.9 (6-22) Glucose 113 H (80-110) mg/dL Calcium 8.8 (8.4-10.2) mg/dL Total Bilirubin 0.5 (0.2-1.3) mg/dL AST 28 (14-36) IU/L ALT 30 (9-52) IU/L Alkaline Phosphatase 74 (38-126) U/L Total Creatine Kinase 86 (30-135) U/L CK-MB (CK-2) TNP CK-MB (CK-2) Rel Index TNP Troponin I < 0.012 (0.01-0.034) ng/mL Total Protein 6.9 (6.3-8.2) g/dL Albumin 4.0 (3.5-5.0) g/dL Globulin 2.9 (1.7-4.1) g/dL Albumin/Globulin Ratio 1.4 (1.0-2.8) Point of Care Testing Glucose POC 112 Urine Dip Bedside Urine Glucose Negative Bedside Urine Bilirubin - Negative Bedside Urine Ketone - Negative Urine Specific [place] 1.025 Bedside Urine Occult Blood - Negative Bedside Urine pH 6.0 Bedside Urine Protein - Negative Bedside Urine Urobilinogen - Negative Bedside Urine Nitrite - Negative Bedside Urine Leukocytes - Negative Esterase ECG Data Attestation: I personally reviewed and interpreted this ECG as follows: Prior ECG tracings: available for review Interpretation: Normal sinus rhythm rate [address] changes no T-wave inversions similar to previous EKG CT interval 174 QTC 419 MDM Narrative Medical decision making narrative: No abnormality on blood work today. No the focal deficits. This time I do not believe she needs CT of the head. We discussed hypoglycemia and treatment for it including of small frequent snacks or meals. Discharge Plan Departure Patient Disposition: Home Clinical Impression: Vasovagal syncope Discharge Date/Time: 10/15/18 14:11 Interventions: ED Discharge Assessment Last Done: 10/15/18 14:10 Instructions: DI for Hypoglycemia Activity Restrictions/Additional Instructions: *You have been diagnosed with syncope *What to do: It is presumed that your episode yesterday is due from low blood sugar. Recommend that he eat small frequent snacks *Continue to take medications as directed *Follow up with your primary care provider in 2-3 days *Return to ER if you should have recurrent episodes of passing out, heart palpitations, or any new, worsening or concerning symptoms Prescriptions: No Action No Known Home Medications RF: 0
[2018-10-15 13:07] VITALS: BP 100/70; PULSE 77; RESP 17; O2SAT 99
[2018-10-15] MEDS: ONDANSETRON 4 MG/2 ML INJ IV (13:11)
[2018-10-15] MEDS: SODIUM CHLORIDE 0.9% 1,000 ML 1000 ML IV (13:11)
[2018-10-15] MEDS: PANTOPRAZOLE 40 MG VIAL IV (13:11)
[2018-10-15 13:15] LABS: Add Manual Diff / Slide Review NO; Basophils Absolute Auto 0 /uL (0-100); Basophils Percent Auto 0.8 % (0-2); Eosinophils Absolute Auto 100 /uL (0-450); Eosinophils Percent Auto 2.2 % (2-4); Hematocrit 40.7 % (36-46); Hemoglobin 13.3 g/dL (12.0-16.0); Lymphocytes Absolute Auto 1900 /uL (1100-4500); Lymphocytes Percent Auto 33.9 % (25-40); Mean Corpuscular HGB Conc 32.6 % (30-36); Mean Corpuscular Hemoglobin 30.5 PG (26-34); Mean Corpuscular Volume 93.6 fL (80-100); Monocytes Absolute Auto 500 /uL (0-900); Monocytes Percent Auto 8.5 % (3-14); Neutrophils Absolute Auto 3000 /uL (1500-7000); Neutrophils Percent Auto 54.6 % (50-75); Platelet Count 242 X10^3/uL (150-400); Red Blood Cell Count 4.35 X10^6/uL (4.0-5.2); White Blood Cell Count 5.6 X10^3/uL (4.5-11.0)
[2018-10-15 13:39] LABS: Alanine Aminotransferase 30 IU/L (9-52); Albumin Globulin Ratio 1.4 (1.0-2.8); Alkaline Phosphatase 74 U/L (38-126); Aspartate Aminotransferase 28 IU/L (14-36); BUN Creatinine Ratio 18.9 (6-22); Bilirubin Total 0.5 mg/dL (0.2-1.3); Blood Urea Nitrogen 17 mg/dL (7-17); Calcium 8.8 mg/dL (8.4-10.2); Carbon Dioxide 27 mmol/L (22-32); Chloride 105 mmol/L (98-107); Creatine Kinase 86 U/L (30-135); Estimated Glomerular Filt Rate > 60.0 mL/min (>60); Globulin 2.9 g/dL (1.7-4.1); Glucose 113 mg/dL (80-110); HEMOLYSIS 29 (0-50); Potassium 4.1 mmol/L (3.4-5.1); Sodium 140 mmol/L (137-145); Total Protein 6.9 g/dL (6.3-8.2)
[2018-10-15 13:55] LABS: Troponin I < 0.012 ng/mL (0.01-0.034)
[2018-10-15 14:03] VITALS: BP 101/63; PULSE 64; RESP 16; O2SAT 100
[2018-10-15 14:10] VITALS: BP 101/63; PULSE 70; RESP 15; O2SAT 98
== END 2018-10-15 14:11 | disposition home or self-care (01) ==
PROVIDERS: Emergency Provider Emergency Medicine; Family Provider Nurse Practitioner Family; PCP Nurse Practitioner Family
DX: R55 Syncope and collapse (principal)
CPT/HCPCS: 36591; 80053; 81003; 82550; 82962; 84484; 85025; 93005; 96361; 96374; 96375; 99283; 99284; C9113; J2405

== ENCOUNTER → 2018-11-16 13:45 | Outpatient (CLI) | payer OTHER, SELFPAY ==
--- NOTE | 2018-11-16 15:26 | PM.TREADMILL ---
Cardiac Stress Test Report Referral & Results Date Patient Seen: 11/16/18 Requesting provider: Ying Hernandez Indication: Syncope Rest ECG: Unremarkable Procedure Note: Today following both written and verbal informed consent the patient was exercised according to a standard Vincenzo protocol patient went for a total of S5 minutes 15 sec achieving a maximum heart rate of 163 maximum systolic blood pressure of 180. This is approximately 7.0 METS. Exercise was terminated at this point because of fatigue. Patient was also given Cardiolite through a previously started Hep-Lock IV by the nuclear cardiology technologist approximately 1 minute prior to the cessation of exercise. There are no ST-T segment changes identified Occasional to rare apparently conducted sinus beat as well as PVCs identified Patient seem to be somewhat orthostatic prior to start of treadmill but overall her blood pressure response to exercise was unremarkable. She was quickly tachycardic with exercise Functional aerobic impairment rating 0 on the sedentary scale Impression: No evidence of ischemia Average exercise capacity Please see perfusion imaging report as well Please note: Actual ECG tracings can be found in the PACS system.
--- NOTE | 2018-11-18 15:34 | DI.NM.S_ITS ---
DATE OF SERVICE: 11/16/2018 PROCEDURE: Exercise perfusion study. INDICATION: Syncope. RADIOPHARMACEUTICAL: 26.6 mCi technetium-99m Myoview IV was injected at stress, and 25.1 mCi technetium-99m Myoview IV was injected at rest. CARDIAC STRESS: Patient underwent exercise perfusion study under the supervision of an attending staff. Patient walked on Vincenzo protocol for 5 minutes 15 seconds and achieved 103% of target heart rate with normal blood pressure response, 7 METS of workload and functional aerobic impairment 0%. Patient felt fatigued. Baseline EKG revealed sinus rhythm. Stress EKG did not reveal any obvious inducible ischemic changes. Occasional PVCs. There was enhanced chronotropic response. RAW DATA: There appears to be appropriate uptake. GATED STUDY: Stress LV ejection fraction 94% with hyperdynamic LV. No regional wall motion abnormalities. Resting end-diastolic volume 65 mL. No transient ischemic dilatation. TID ratio 0.92, which is within normal limits. Lung/heart ratio was 0.33, which is within normal limits. MYOCARDIAL PERFUSION: Stress supine, resting supine, and stress prone images were compared to each other. It appears to be that patient has normal myocardial perfusion. CONCLUSION: This is a normal myocardial perfusion study. LV function is hyperdynamic. Overall, this is a low-risk myocardial perfusion scan. Luz Marina Rodriguez - TEMPERATURE CONTROL INSPECTOR/fn/kv doc#: [id number]/job#: [id number] dd: 11/18/2018 12:54:00 dt: 11/18/2018 15:27:00 DICTATING /COPIES TO: Alexandra Morelos MD COPIES MNE: [place]
== END ==
PROVIDERS: Family Provider Nurse Practitioner Family; PCP Nurse Practitioner Family; Visit Provider Nurse Practitioner Family
DX: R55 Syncope and collapse (principal)
CPT/HCPCS: 78452; 93016; 93017; 93018; A9502

== ENCOUNTER → 2019-04-14 15:55 | Outpatient (CLI) | payer OTHER, SELFPAY ==
--- NOTE | 2019-04-14 15:57 | DI.MG.S_ITS ---
BILATERAL DIGITAL SCREENING MAMMOGRAM 3D/2D WITH CAD: 04/14/2019 CLINICAL: Routine screening. Comparison is made to exams dated: 04/08/2018 mammogram, 09/03/2016 mammogram - [facility], and 09/28/2014 mammogram - [facility]. The tissue of both breasts is predominantly fatty. Current study was also evaluated with a Computer Aided Detection (CAD) system. No significant masses, calcifications, or other findings are seen in either breast. There has been no significant interval change. IMPRESSION: NEGATIVE There is no mammographic evidence of malignancy. A 1 year screening mammogram is recommended. This exam was interpreted at Station ID: [id number]. NOTE: For mammograms, a report in lay terms will be sent to the patient. Approximately 15% of breast malignancies will not be visualized mammographically. In the management of a palpable breast mass, a negative mammogram must not discourage biopsy of a clinically suspicious lesion. Electronically Signed By: Patricia reynolds/ruchi:04/14/2019 16:50:01 copy to: SANTOS BURGESS letter sent: Normal Exam ACR BI-RADS Category 1: Negative [id number]
== END ==
PROVIDERS: Family Provider Nurse Practitioner Family; PCP Nurse Practitioner Family; Visit Provider Nurse Practitioner Family
DX: Z12.31 Encounter for screening mammogram for malignant neoplasm of breast (principal)
CPT/HCPCS: 77063; 77067

== ENCOUNTER → 2019-10-27 12:35 | Outpatient (CLI) | payer OTHER, SELFPAY ==
--- NOTE | 2019-10-27 | DI.RAD.S_ITS ---
PROCEDURE: XR HIP W PEL IF DONE RT 2V INDICATIONS: RIGHT HIP PAIN TECHNIQUE: AP pelvis with lateral view(s) of the right hip(s). COMPARISON: None. FINDINGS: Bones: No fractures or dislocations. Pelvic ring appears intact. No suspicious bony lesions. Right hip arthroplasty in expected postoperative alignment. No evidence of hardware loosening or failure. Mild left hip joint degeneration. Lower lumbar spondylosis and facet arthropathy. Soft tissues: The visualized bowel gas pattern is normal. No suspicious soft tissue calcifications. IMPRESSION: Expected postoperative alignment of right hip arthroplasty. No evidence of hardware failure or loosening. Mild left hip degeneration Dictated by: Reagan Barnes M.D. on 10/27/2019 at 17:12 Approved by: Reagan Barnes M.D. on 10/27/2019 at 17:13
== END ==
PROVIDERS: Family Provider Nurse Practitioner Family; PCP Nurse Practitioner Family; Referring Provider Nurse Practitioner Family; Visit Provider Nurse Practitioner Family
DX: M25.551 Pain in right hip (principal); M16.12 Unilateral primary osteoarthritis, left hip; M47.816 Spondylosis without myelopathy or radiculopathy, lumbar region; Z96.641 Presence of right artificial hip joint
CPT/HCPCS: 73502

== ENCOUNTER 2020-03-16 15:54 | Emergency (ER) | payer OTHER, SELFPAY ==
[2020-03-16 15:57] VITALS: BP 131/85; PULSE 88; RESP 15; TEMP 36.4; O2SAT 96; BMI 30.7
--- NOTE | 2020-03-16 16:03 | ED_ITS ---
HPI - Nausea/Vomiting/Diarrhea <Naila Cruz PA-C - Last Filed: 03/16/20 23:29> General Chief complaint: Nausea/Vomiting/Diarrhea Stated complaint: NAUSEA DIARRHEA BAD HEADACHE LEFT SIDE LOWER PAIN Time Seen by Provider: 03/16/20 16:03 Source: patient Mode of arrival: Ambulatory Limitations: no limitations History of Present Illness HPI Narrative: Ms. Rodriguez is a 64-year-old woman with a history of gastric sleeve bypass, GERD and ureterolithiasis who presents to the emergency dep artment complaining of left-sided flank and abdominal pain and nausea as well as morning diarrhea for the past month, and a mild intermittent throbbing headache for the last week that is left-sided and in the back. She says that she came to the ED today because she had a big episode of vomiting last night and because she is scheduled to have a colonoscopy next week and they were concerned about h er ongoing diarrhea and other symptoms and advised her to come to the emergency department. She has had 5 episodes of vomiting in the past month. But she has had nausea consistently after every meal for the past month to the point where for the last few weeks she has only been eating popsicles and then lunch but inevitably feels nauseous after eating lunch. She also reports that when she wakes up in the morning for the past week she has a headache every morning and feels nauseous when she wakes. She has been taking Tylenol for her headache with good success on and off for the last 7 days she reports the headache is mostly there in the mornings but comes and goes; it is a 3/10 right now. She says that the left-sided pain she is having does not feel similar to when she had a stone previously, although does note that it does come and go and is not constant she describes it as a 7/10 and sharp. She reports that 2 weeks ago she started doing supplements with colloidal silver and Aloe juice as she also reports that she did due to ?dietary cleanses a little over a month ago just before her diarrhea symptoms started, she says she has done these cleanses before and has not had any problems with diarrhea or other symptoms. She notes that she works as a dispatcher for transport service and has to be very on it mentally and this has been difficult lately. She denies any fever, chills, dysuria, chest pain, shortness of breath or any other symptoms. MD complaint: nausea, vomiting, diarrhea, abdominal pain and other (headache) Onset (ago): week(s) (nausea, abd pain, diarrhea 4 weeks; headache 1 week, vomiting intermittent & last night) Description of Vomiting: food contents Description of Diarrhea: watery and mucousy (4-5 times a day in the mornings.) Related Data Previous Rx's Medication Instructions Recorded ondansetron HCl [Zofran] 4 mg PO Q6H #30 tab 03/16/20 Allergies Allergy/AdvReac Type Severity Reaction Status Date / Time oxycodone [OXYCODONE] AdvReac Mild NAUSEA, Verified 03/16/20 16:01 VOMITING Review of Systems <Naila Cruz PA-C - Last Filed: 03/16/20 23:29> Review of Systems Narrative: GENERAL: Denies chills, fatigue, malaise, fever, sweats. HEENT: Denies sinus pain, ear pain, sore throat, difficulty swallowing, dizziness. RESPIRATORY: Denies dyspnea, cough, wheezing, hemoptysis, sputum. CARDIOVASCULAR: Denies chest pain, palpitations, orthopnea, edema, GASTROINTESTINAL: Positive for intermittent nausea, often in the mornings and always after eating, intermittent vomiting (1 episode last night and 5 episodes in the last few weeks, left side abdominal pain, 3-4 episodes of diarrhea each morning, negative for constipation, melena. : Denies dysuria, frequency, incontinence, hematuria, urinary retention. MUSCULOSKELETAL: denies weakness, joint pain, or bony pain SKIN: Denies rash, skin lesions, or other NEUROLOGIC: Denies weakness, headache, numbness, change in speech, confusion, seizures, incoordination. PSYCHIATRIC: No concerning psychosocial issues. 12 point review of systems is negative except for those stated above Patient History <Naila Cruz PA-C - Last Filed: 03/16/20 23:29> Medical History GERD (gastroesophageal reflux disease) (Acute) Surgical History Status post gastrectomy (Acute) Social History Smoking Status: Never smoker alcohol intake: never substance use type: does not use Smoking Status: Never smoker Exam <Naila Cruz PA-C - Last Filed: 03/16/20 23:29> Narrative Exam Narrative: GENERAL: [64] year old patient appears stated age. Well- nourished, well-developed patient, in mild distress. HEAD: Atraumatic. Normocephalic. EYES: Pupils equal round and reactive. Extraocular motions intact. No scleral icterus. No injection or drainage. ENT: Nose without bleeding, purulent drainage. Throat without erythema, tonsillar hypertrophy or exudate. Airway patent. NECK: Trachea midline. Non tender CARDIOVASCULAR: Regular rate and rhythm without murmurs, gallops, or rubs. RESPIRATORY: Clear to auscultation. Breath sounds equal bilaterally. No wheezes, rales, or rhonchi. GASTROINTESTINAL: Abdomen soft, nondistended, she has mild tenderness in the left upper and left lower quadrants and the left lateral side. EXTREMITIES: No edema or joint tenderness. BACK: Nontender without deformity or crepitance. There is mild flank tenderness on the left. NEURO: AOx3. SKIN: No rash or erythema of visible areas Initial Vital Signs Initial Vital Signs: Vital Signs Temperature 97.6 F 03/16/20 15:57 Pulse Rate 88 03/16/20 15:57 Respiratory Rate 15 03/16/20 15:57 Blood Pressure 131/85 03/16/20 15:57 Pulse Oximetry 96 03/16/20 15:57 <Estrellita Cheatham DO - Last Filed: 03/21/20 08:14> Initial Vital Signs Initial Vital Signs: Vital Signs Temperature 97.6 F 03/16/20 15:57 Pulse Rate 88 03/16/20 15:57 Respiratory Rate 15 03/16/20 15:57 Blood Pressure 131/85 03/16/20 15:57 Pulse Oximetry 96 03/16/20 15:57 Scores <GEORGINA Ngo Last Filed: 03/16/20 23:29> GCS [place] coma scale eye opening: Spontaneous [place] coma scale verbal response: Orientated [place] coma scale motor response: Obey commands [place] coma scale total score: 15 Course <GEORGINA Ngo Last Filed: 03/16/20 23:29> Orders Ordered: Discontinued Medications Sodium Chloride (Normal Saline 0.9%) 1,000 mls @ 150 mls/hr IV CONT ANDREW Last Infusion: 03/16/20 19:33 Dose: 150 mls/hr Documented by: Admin: 03/16/20 16:14 Dose: 150 mls/hr Documented by: FERCHO Ondansetron HCl (Zofran) 4 mg IV NOW ONE Stop: 03/16/20 16:05 Last Admin: 03/16/20 16:14 Dose: 4 mg Documented by: FERCHO Vital Signs Vital signs: Vital Signs - 8 hr 03/16/20 15:57 03/16/20 16:30 03/16/20 17:00 Temperature 97.6 F Pulse Rate 88 72 74 Respiratory Rate 15 Blood Pressure 131/85 141/64 H Pulse Oximetry 96 98 98 03/16/20 17:01 03/16/20 17:47 03/16/20 19:32 Temperature Pulse Rate 71 81 Respiratory Rate 18 Blood Pressure 119/56 L 125/68 127/74 Pulse Oximetry 98 97 <Estrellita Cheatham, - Last Filed: 03/21/20 08:14> Orders Ordered: Discontinued Medications Sodium Chloride (Normal Saline 0.9%) 1,000 mls @ 150 mls/hr IV CONT [facility] Last Infusion: 03/16/20 19:33 Dose: 150 mls/hr Documented by: Admin: 03/16/20 16:14 Dose: 150 mls/hr Documented by: FERCHO Ondansetron HCl (Zofran) 4 mg IV NOW ONE Stop: 03/16/20 16:05 Last Admin: 03/16/20 16:14 Dose: 4 mg Documented by: FERCHO Vital Signs Vital signs: Vital Signs - 8 hr 03/16/20 15:57 03/16/20 16:30 03/16/20 17:00 Temperature 97.6 F Pulse Rate 88 72 74 Respiratory Rate 15 Blood Pressure 131/85 141/64 H Pulse Oximetry 96 98 98 03/16/20 17:01 03/16/20 17:47 03/16/20 19:32 Temperature Pulse Rate 71 81 Respiratory Rate 18 Blood Pressure 119/56 L 125/68 127/74 Pulse Oximetry 98 97 MDM - Nausea/Vomiting/Diarrhea <Naila Cruz PA-C - Last Filed: 03/16/20 23:29> Differential Diagnosis Differential diagnosis: Likely gastroenteritis, dehydration and other (GERD, nausea, vomiting, diarrhea, diverticulosis, ureterolithiasis, UTI) Medical Records Attestation: I reviewed the patient's medical records. Lab Data Attestation: I reviewed the patient's lab results. Result diagrams: 03/16/20 16:01 03/16/20 16:01 Labs: Lab Results 03/16/20 03/16/20 03/16/20 Range/Units 16:01 16: 16:01 WBC 6.1 (4.5-11.0) X10^3/uL RBC 4.33 (4.0-5.2) X10^6/uL Hgb 13.5 (12.0-16.0) g/dL Hct 39.9 (36-46) % MCV 92.3 (80-100) fL MCH 31.1 (26-34) PG MCHC 33.7 (30-36) % RDW 14.1 (11.6-14.8) % Plt Count 263 (150-400) X10^3/uL Neut % (Auto) 46.1 L (50-75) % Lymph % (Auto) 43.1 H (25-40) % Gilliam % (Auto) 7.4 (3-14) % Eos % (Auto) 2.3 (2-4) % Baso % (Auto) 1.1 (0-2) % Neut # (Auto) 2800 (7315-8053) /uL Lymph # (Auto) 2600 (5950-8134) /uL Gilliam # (Auto) 400 (0-900) /uL Eos # (Auto) 100 (0-450) /uL Baso # (Auto) 100 (0-100) /uL Sodium 138 (137-145) mmol/L Potassium 3.7 (3.4-5.1) mmol/L Chloride 106 (98-107) mmol/L Carbon Dioxide 26 (22-32) mmol/L BUN 11 (7-17) mg/dL Creatinine 0.76 (0.52-1.04) mg/dL Estimated GFR > 60.0 (>60) mL/min BUN/Creatinine Ratio 14.5 (6-22) Glucose 134 H (80-110) mg/dL Calcium 9.2 (8.4-10.2) mg/dL Magnesium 2.1 (1.6-2.3) mg/dL Total Bilirubin 0.5 (0.2-1.3) mg/dL AST 33 (14-36) IU/L ALT 21 (<35) IU/L Alkaline Phosphatase 78 (38-126) U/L Total Protein 7.1 (6.3-8.2) g/dL Albumin 4.1 (3.5-5.0) g/dL Globulin 3.0 (1.7-4.1) g/dL Albumin/Globulin Ratio 1.4 (1.0-2.8) Lipase 104 (23-300) U/L Urine Color Urine Appearance Urine pH (4.5-8.0) Ur Specific [place] (1.000-1.035) Urine Protein (Negative) Urine Glucose (UA) (Negative) g/dL Urine Ketones (NEGATIVE) Urine Occult Blood (Negative) Urine Nitrate (Negative) Urine Bilirubin (NEGATIVE) Urine Urobilinogen (0.2) E.U./dL Ur Leukocyte Esterase (NEGATIVE) Urine RBC (0-5/HPF) Urine WBC (0-5/HPF) Ur Squamous Epith Cells (0-5/HPF) Urine Bacteria (None) Ur Culture Indicated? 03/16/20 Range/Units 17:45 WBC (4.5-11.0) X10^3/uL RBC (4.0-5.2) X10^6/uL Hgb (12.0-16.0) g/dL Hct (36-46) % MCV (80-100) fL MCH (26-34) PG MCHC (30-36) % RDW (11.6-14.8) % Plt Count (150-400) X10^3/uL Neut % (Auto) (50-75) % Lymph % (Auto) (25-40) % Gilliam % (Auto) (3-14) % Eos % (Auto) (2-4) % Baso % (Auto) (0-2) % Neut # (Auto) (5237-1989) /uL Lymph # (Auto) (7092-3345) /uL Gilliam # (Auto) (0-900) /uL Eos # (Auto) (0-450) /uL Baso # (Auto) (0-100) /uL Sodium (137-145) mmol/L Potassium (3.4-5.1) mmol/L Chloride (98-107) mmol/L Carbon Dioxide (22-32) mmol/L BUN (7-17) mg/dL Creatinine (0.52-1.04) mg/dL Estimated GFR (>60) mL/min BUN/Creatinine Ratio (6-22) Glucose (80-110) mg/dL Calcium (8.4-10.2) mg/dL Magnesium (1.6-2.3) mg/dL Total Bilirubin (0.2-1.3) mg/dL AST (14-36) IU/L ALT (<35) IU/L Alkaline Phosphatase (38-126) U/L Total Protein (6.3-8.2) g/dL Albumin (3.5-5.0) g/dL Globulin (1.7-4.1) g/dL Albumin/Globulin Ratio (1.0-2.8) Lipase (23-300) U/L Urine Color Yellow Urine Appearance Clear Urine pH 6.0 (4.5-8.0) Ur Specific [place] 1.010 (1.000-1.035) Urine Protein Negative (Negative) Urine Glucose (UA) Negative (Negative) g/dL Urine Ketones Negative (NEGATIVE) Urine Occult Blood Trace-lysed (Negative) Urine Nitrate Negative (Negative) Urine Bilirubin Negative (NEGATIVE) Urine Urobilinogen 0.2 (0.2) E.U./dL Ur Leukocyte Esterase Negative (NEGATIVE) Urine RBC 0-1/hpf (0-5/HPF) Urine WBC 1-5/hpf (0-5/HPF) Ur Squamous Epith Cells 1-5 /hpf (0-5/HPF) Urine Bacteria Many (>30) H (None) Ur Culture Indicated? Specimen cultured Imaging Data CT scan - abdomen/pelvis: Attestation: I personally reviewed and interpreted this imaging study as follows: Radiologist's Impression: [address] [address] [address] Scan Report Signed Patient: Luz Marina Rodriguez LMR#: [id number] : 6Acct:[id number] Age/Sex: 64 / FDate of Service: 03/16/20 Loc: ED Accession Number: [id number] Procedure: CT abdomen pelvis w con Ordering Provider: Naila Cruz P.A-C PROCEDURE: CT ABDOMEN PELVIS W CON INDICATIONS: N/V/D L-side abd pain/flank pain TECHNIQUE: After the administration of intravenous contrast, 5 mm thick sections acquired from the diaphragm to the symphysis. 5 mm coronal and sagittal reformats were acquired. For radiation dose reduction, the following was used: automated exposure control, adjustment of mA and/or kV according to patient size. COMPARISON: [facility], CT, CT ABDOMEN ADRENAL PROTOCOL, 09/22/2017, 10:14. FINDINGS: Image quality: Excellent. ABDOMEN: Lung bases: Lung bases are clear. Heart size is normal. Solid organs: Hepatic steatosis. Gallbladder unremarkable. Biliary system is non dilated. Pancreas enhances normally. Spleen is normal in size and enhancement. Unchanged right adrenal adenoma Kidneys demonstrate normal size and enhancement, without hydronephrosis. Peritoneum and bowel: Postsurgical changes involving the stomach. Small hiatal hernia, unchanged. Colonic diverticulosis is seen without evidence of acute compli cation. No free fluid or air. Nodes and vessels: No retroperitoneal or mesenteric adenopathy by size criteria. Aorta and inferior vena cava are normal in size. Miscellaneous: No ventral hernias. PELVIS: Genitourinary: Bladder wall thickness is normal. Miscellaneous: No inguinal hernias or adenopathy. Bones: No suspicious bony lesions. No vertebral body compression fractures. IMPRESSION: Overall, no acute abnormality Hepatic steatosis Dictated by: Reagan Barnes M.D. on 03/16/2020 at 18:54 Approved by: Reagan Barnes M.D. on 03/16/2020 at 18:58 [facility] Narrative Medical decision making narrative: This is a fairly well-appearing 64-year-old woman with a history of GERD, sleeve gastrectomy, who presents with a 4 week history of morning diarrhea, frequent nausea after eating, multiple episodes of vomiting in the last few weeks including last night, and left-sided abdominal pain and left flank pain that has been going on for 4 weeks. She presented to the emergency department today because she had episode of vomiting last night and she feels like ?it is getting worse? she notably has a colonoscopy coming up in the next 2 weeks. Differential diagnoses that were considered and include gastroenteritis, dehydration, infectious colitis, ureterolithiasis, UTI, pyelonephritis, diverticulosis, GERD. Labs were grossly unremarkable, CT scan was negative for acute intra-abdominal process. It is possible that her pain could be due to her diverticulosis noted on CT scan however this seems unlikely given there are no other changes or suggestion of inflammation noted. Ureterolithiasis is less likely given the unremarkable urinalysis, and the location of her pain. It is also possible that the dietary cleanses that the patient did shortly before her symptoms began 1 month ago are responsible for upsetting her GI tract. Patient was unable to provide a stool sample today, and she was advised to follow-up with her primary care physician so that she can get this cultured. Patient reported ongoing chronic issues with GERD and reflux, but has tried ?everything under the sun and has settled on a regimen of Nexium and Pepcid that she takes as needed. Patient improved significantly after administration of some fluids and Zofran, saying she felt ?much better? and was ultimately discharged with a prescription for Zofran, referral for Gastroenterology, close PCP follow-up, emergency return precautions, all questions were answered. <Estrellita Cheatham, DO - Last Filed: 03/21/20 08:14> Lab Data Labs: Lab Results 03/16/20 03/16/20 03/16/20 Range/Units 16:01 16:01 16:01 WBC 6.1 (4.5-11.0) X10^3/uL RBC 4.33 (4.0-5.2) X10^6/uL Hgb 13.5 (12.0-16.0) g/dL Hct 39.9 (36-46) % MCV 92.3 (80-100) fL MCH 31.1 (26-34) PG MCHC 33.7 (30-36) % RDW 14.1 (11.6-14.8) % Plt Count 263 (150-400) X10^3/uL Neut % (Auto) 46.1 L (50-75) % Lymph % (Auto) 43.1 H (25-40) % Gilliam % (Auto) 7.4 (3-14) % Eos % (Auto) 2.3 (2-4) % Baso % (Auto) 1.1 (0-2) % Neut # (Auto) 2800 (1097-3814) /uL Lymph # (Auto) 2600 (7658-9320) /uL Gilliam # (Auto) 400 (0-900) /uL Eos # (Auto) 100 (0-450) /uL Baso # (Auto) 100 (0-100) /uL Sodium 138 (137-145) mmol/L Potassium 3.7 (3.4-5.1) mmol/L Chloride 106 (98-107) mmol/L Carbon Dioxide 26 (22-32) mmol/L BUN 11 (7-17) mg/dL Creatinine 0.76 (0.52-1.04) mg/dL Estimated GFR > 60.0 (>60) mL/min BUN/Creatinine Ratio 14.5 (6-22) Glucose 134 H (80-110) mg/dL Calcium 9.2 (8.4-10.2) mg/dL Magnesium 2.1 (1.6-2.3) mg/dL Total Bilirubin 0.5 (0.2-1.3) mg/dL AST 33 (14-36) IU/L ALT 21 (<35) IU/L Alkaline Phosphatase 78 (38-126) U/L Total Protein 7.1 (6.3-8.2) g/dL Albumin 4.1 (3.5-5.0) g/dL Globulin 3.0 (1.7-4.1) g/dL Albumin/Globulin Ratio 1.4 (1.0-2.8) Lipase 104 (23-300) U/L Urine Color Urine Appearance Urine pH (4.5-8.0) Ur Specific [place] (1.000-1.035) Urine Protein (Negative) Urine Glucose (UA) (Negative) g/dL Urine Ketones (NEGATIVE) Urine Occult Blood (Negative) Urine Nitrate (Negative) Urine Bilirubin (NEGATIVE) Urine Urobilinogen (0.2) E.U./dL Ur Leukocyte Esterase (NEGATIVE) Urine RBC (0-5/HPF) Urine WBC (0-5/HPF) Ur Squamous Epith Cells (0-5/HPF) Urine Bacteria (None) Ur Culture Indicated? 03/16/20 Range/Units 17:45 WBC (4.5-11.0) X10^3/uL RBC (4.0-5.2) X10^6/uL Hgb (12.0-16.0) g/dL Hct (36-46) % MCV (80-100) fL MCH (26-34) PG MCHC (30-36) % RDW (11.6-14.8) % Plt Count (150-400) X10^3/uL Neut % (Auto) (50-75) % Lymph % (Auto) (25-40) % Gilliam % (Auto) (3-14) % Eos % (Auto) (2-4) % Baso % (Auto) (0-2) % Neut # (Auto) (0367-0745) /uL Lymph # (Auto) (3369-6855) /uL Gilliam # (Auto) (0-900) /uL Eos # (Auto) (0-450) /uL Baso # (Auto) (0-100) /uL Sodium (137-145) mmol/L Potassium (3.4-5.1) mmol/L Chloride (98-107) mmol/L Carbon Dioxide (22-32) mmol/L BUN (7-17) mg/dL Creatinine (0.52-1.04) mg/dL Estimated GFR (>60) mL/min BUN/Creatinine Ratio (6-22) Glucose (80-110) mg/dL Calcium (8.4-10.2) mg/dL Magnesium (1.6-2.3) mg/dL Total Bilirubin (0.2-1.3) mg/dL AST (14-36) IU/L ALT (<35) IU/L Alkaline Phosphatase (38-126) U/L Total Protein (6.3-8.2) g/dL Albumin (3.5-5.0) g/dL Globulin (1.7-4.1) g/dL Albumin/Globulin Ratio (1.0-2.8) Lipase (23-300) U/L Urine Color Yellow Urine Appearance Clear Urine pH 6.0 (4.5-8.0) Ur Specific [place] 1.010 (1.000-1.035) Urine Protein Negative (Negative) Urine Glucose (UA) Negative (Negative) g/dL Urine Ketones Negative (NEGATIVE) Urine Occult Blood Trace-lysed (Negative) Urine Nitrate Negative (Negative) Urine Bilirubin Negative (NEGATIVE) Urine Urobilinogen 0.2 (0.2) E.U./dL Ur Leukocyte Esterase Negative (NEGATIVE) Urine RBC 0-1/hpf (0-5/HPF) Urine WBC 1-5/hpf (0-5/HPF) Ur Squamous Epith Cells 1-5 /hpf (0-5/HPF) Urine Bacteria Many (>30) H (None) Ur Culture Indicated? Specimen cultured Discharge Plan Departure Patient Disposition: Home Clinical Impression: Diverticulosis Nausea & vomiting Qualifiers: Vomiting type: unspecified Vomiting Intractability: non-intractable Qualified Code(s): R11.2 - Nausea with vomiting, unspecified Diarrhea Qualifiers: Diarrhea type: unspecified type Qualified Code(s): R19.7 - Diarrhea, unspecified Abdominal pain Qualifiers: Abdominal location: left upper quadrant Qualified Code(s): R10.12 - Left upper quadrant pain Headache Qualifiers: Headache type: unspecified Headache chronicity pattern: episodic headache Intractability: not intractable Qualified Code(s): R51 - Headache Discharge Date/Time: 03/16/20 19:42 Instructions: DI for Dehydration -- Adult, DI for Abdominal Pain-Adult, DI for Nausea -- Adult, DI for Vomiting -- Adult Activity Restrictions/Additional Instructions: Thank you for letting us be part of your care in the emergency department today. There is no evidence of an emergent or life threatening illness at this time, but follow up with your doctor in 1-2 days is recommended nonetheless to continue to rule out serious underlying causes of your symptoms. Please call the office for an appointment. Please return to the Emergency Department for any worsening or persistent symptoms. Please take medications as directed. Your labs actually looked really pretty good today, I do not have a suspicion that you have a acute abdominal emergency at this time that requires further evalua tion in the ED or admittance to the hospital. Your CT scan looks good, there is some diverticulosis there but this was present on your previous CT scan. It is possible that this could be related to your pain. I recommend that you follow- up with your primary care physician, keep your appointment for your colonoscopy that is coming up and I am also prescribing an anti-nausea medicine for you and providing you a note for work. If you continue to have symptoms particularly if you have new or worsening symptoms please do not hesitate to seek medical care. I have also referred you to see a information scientist specialist and you may call them to work on setting up an appointment. Prescriptions: New ondansetron HCl [Zofran] 4 mg tablet 4 mg PO Q6H Qty: 30 RF: 0 Referrals: Ying Hernandez ARNP [Primary Care Provider] - Esau Garcia MD [Non-Staff] - (chronic N/V/D + reflux Gastric sleeve hx) Stand Alone Forms: Work Release Note <Estrellita Cheatham DO - Last Filed: 03/21/20 08:14> Cosign ED Attending Cosyadiraature Attestation: I was immediately available in the department for consultation. Documentation has been reviewed. I agree with assessment and plan.
[2020-03-16 16:10] LABS: Add Manual Diff / Slide Review NO; Basophils Absolute Auto 100 /uL (0-100); Basophils Percent Auto 1.1 % (0-2); Eosinophils Absolute Auto 100 /uL (0-450); Eosinophils Percent Auto 2.3 % (2-4); Hematocrit 39.9 % (36-46); Hemoglobin 13.5 g/dL (12.0-16.0); Lymphocytes Absolute Auto 2600 /uL (1100-4500); Lymphocytes Percent Auto 43.1 % (25-40); Mean Corpuscular HGB Conc 33.7 % (30-36); Mean Corpuscular Hemoglobin 31.1 PG (26-34); Mean Corpuscular Volume 92.3 fL (80-100); Monocytes Absolute Auto 400 /uL (0-900); Monocytes Percent Auto 7.4 % (3-14); Neutrophils Absolute Auto 2800 /uL (1500-7000); Neutrophils Percent Auto 46.1 % (50-75); Platelet Count 263 X10^3/uL (150-400); Red Blood Cell Count 4.33 X10^6/uL (4.0-5.2); Red Cell Distribution Width 14.1 % (11.6-14.8); White Blood Cell Count 6.1 X10^3/uL (4.5-11.0)
[2020-03-16] MEDS: SODIUM CHLORIDE 0.9% 1,000 ML 150 ML IV (16:14)
[2020-03-16] MEDS: ONDANSETRON 4 MG/2 ML INJ IV (16:14)
--- NOTE | 2020-03-16 16:15 | PC.NURSE ---
patient reports having left side abd pain for about one month along with diarrhea every morning for one month. Reports nausea and vomiting occasionally after any meal. Patient took one week of antibiotics she had a home about a week ago. Patient denies fevers. States pain feels slightly similar to her kidney stone pain but the kidney stone pain was significantly worse.
--- NOTE | 2020-03-16 16:17 | PC.NURSE ---
patient states she has been having more frequent headaches and has been taking at least two tabs of aspirin daily for headaches.
[2020-03-16 16:30] VITALS: BP 141/64; PULSE 72; O2SAT 98
[2020-03-16 16:30] LABS: Alanine Aminotransferase 21 IU/L (<35); Albumin 4.1 g/dL (3.5-5.0); Albumin Globulin Ratio 1.4 (1.0-2.8); Alkaline Phosphatase 78 U/L (38-126); Aspartate Aminotransferase 33 IU/L (14-36); BUN Creatinine Ratio 14.5 (6-22); Bilirubin Total 0.5 mg/dL (0.2-1.3); Blood Urea Nitrogen 11 mg/dL (7-17); Calcium 9.2 mg/dL (8.4-10.2); Carbon Dioxide 26 mmol/L (22-32); Chloride 106 mmol/L (98-107); Estimated Glomerular Filt Rate > 60.0 mL/min (>60); Glucose 134 mg/dL (80-110); HEMOLYSIS 25 (0-50); Lipase 104 U/L (23-300); Potassium 3.7 mmol/L (3.4-5.1); Sodium 138 mmol/L (137-145); Total Protein 7.1 g/dL (6.3-8.2)
--- NOTE | 2020-03-16 16:40 | PC.NURSE ---
verbal order to bolus 500ml normal saline
[2020-03-16 16:53] LABS: Magnesium 2.1 mg/dL (1.6-2.3)
[2020-03-16 17:00] VITALS: PULSE 74; O2SAT 98
[2020-03-16 17:01] VITALS: BP 119/56
[2020-03-16 17:47] VITALS: BP 125/68; PULSE 71; O2SAT 98
[2020-03-16 17:54] LABS: Appearance Urine UA CLEAR; Bilirubin Urine UA NEGATIVE (NEGATIVE); Color Urine UA YELLOW; Glucose Urine UA NEGATIVE (Negative); Ketones Urine UA NEGATIVE (NEGATIVE); Leukocyte Esterase Urine UA NEGATIVE (NEGATIVE); Nitrite Urine UA NEGATIVE (Negative); Occult Blood Urine UA TRACE-LYSED (Negative); Protein Urine UA NEGATIVE (Negative); Urobilinogen Urine UA 0.2 E.U./dL (0.2)
[2020-03-16 18:02] LABS: RBC Urine 0-1/HPF (0-5/HPF); Squamous Epithelial Cell Urine 1-5 /HPF (0-5/HPF); WBC Urine 1-5/HPF (0-5/HPF)
[2020-03-16 18:03] LABS: Bacteria Urine Many (>30); Culture Indicated Urine Specimen Cultured
--- NOTE | 2020-03-16 18:06 | DI.CT.S_ITS ---
PROCEDURE: CT ABDOMEN PELVIS W CON INDICATIONS: N/V/D L-side abd pain/flank pain TECHNIQUE: After the administration of intravenous contrast, 5 mm thick sections acquired from the diaphragm to the symphysis. 5 mm coronal and sagittal reformats were acquired. For radiation dose reduction, the following was used: automated exposure control, adjustment of mA and/or kV according to patient size. COMPARISON: [facility], CT, CT ABDOMEN ADRENAL PROTOCOL, 09/22/2017, 10:14. FINDINGS: Image quality: Excellent. ABDOMEN: Lung bases: Lung bases are clear. Heart size is normal. Solid organs: Hepatic steatosis. Gallbladder unremarkable. Biliary system is non dilated. Pancreas enhances normally. Spleen is normal in size and enhancement. Unchanged right adrenal adenoma Kidneys demonstrate normal size and enhancement, without hydronephrosis. Peritoneum and bowel: Postsurgical changes involving the stomach. Small hiatal hernia, unchanged. Colonic diverticulosis is seen without evidence of acute complication. No free fluid or air. Nodes and vessels: No retroperitoneal or mesenteric adenopathy by size criteria. Aorta and inferior vena cava are normal in size. Miscellaneous: No ventral hernias. PELVIS: Genitourinary: Bladder wall thickness is normal. Miscellaneous: No inguinal hernias or adenopathy. Bones: No suspicious bony lesions. No vertebral body compression fractures. IMPRESSION: Overall, no acute abnormality Hepatic steatosis Dictated by: Reagan Barnes M.D. on 03/16/2020 at 18:54 Approved by: Reagan Barnes M.D. on 03/16/2020 at 18:58
[2020-03-16 19:32] VITALS: BP 127/74; PULSE 81; RESP 18; O2SAT 97
== END 2020-03-16 19:42 | disposition home or self-care (01) ==
PROVIDERS: Emergency Provider Student in an Organized Health Care Education/Training Program; Family Provider Nurse Practitioner Family; PCP Nurse Practitioner Family
DX: K57.90 Diverticulosis of intestine, part unspecified, without perforation or abscess without bleeding (principal); R19.7 Diarrhea, unspecified; R51 Headache; R11.2 Nausea with vomiting, unspecified; R10.12 Left upper quadrant pain; K21.9 Gastro-esophageal reflux disease without esophagitis
CPT/HCPCS: 36415; 74177; 80053; 81001; 83690; 83735; 85025; 87077; 87086; 87186; 96361; 96374; 99284; J2405; Q9967

== ENCOUNTER → 2020-03-24 09:24 | Outpatient (CLI) | payer OTHER, SELFPAY ==
[2020-03-25 09:27] LABS: COVID19 Sendout Not Detected (Not Detect)
== END ==
PROVIDERS: Family Provider Nurse Practitioner Family; PCP Nurse Practitioner Family; Visit Provider Physician Assistant
DX: Z01.812 Encounter for preprocedural laboratory examination (principal)
CPT/HCPCS: 87635

== ENCOUNTER → 2020-04-12 16:57 | Outpatient (CLI) | payer OTHER, SELFPAY ==
[2020-04-12 19:14] LABS: Campylobacter Not Detected (Not Detect); Clostridium difficile toxin AB Not Detected (Not Detect); Enteroaggregative E.coli Not Detected (Not Detect); Enteropathogenic E.coli Not Detected (Not Detect); Enterotoxigenic E.coli It/st Not Detected (Not Detect); Plesiomonsa shigelloides Not Detected (Not Detect); Salmonella Not Detected (Not Detect); Shiga-like toxin-prod E.coli Not Detected (Not Detect); Shigella/Enteroinvasive E.coli Not Detected (Not Detect); Vibrio Not Detected (Not Detect); Vibrio cholerae Not Detected (Not Detect); Yersinia enterocolitica Not Detected (Not Detect)
[2020-04-12 19:15] LABS: Adenovirus F 40/41 Not Detected (Not Detect); Astrovirus Not Detected (Not Detect); Cryptosporidium Not Detected (Not Detect); Cyclospora cayetanensis Not Detected (Not Detect); Entamoeba histolytica Not Detected (Not Detect); Giardia lamblia Not Detected (Not Detect); Norovirus GI/GII Not Detected (Not Detect); Rotavirus A Not Detected (Not Detect); Sapovirus Not Detected (Not Detect)
== END ==
PROVIDERS: Family Provider Nurse Practitioner Family; PCP Nurse Practitioner Family; Referring Provider Physician Assistant; Visit Provider Physician Assistant
DX: R19.7 Diarrhea, unspecified (principal)
CPT/HCPCS: 87507

== ENCOUNTER → 2020-04-18 17:38 | Outpatient (CLI) | payer OTHER, SELFPAY ==
--- NOTE | 2020-04-18 | DI.MG.S_ITS ---
BILATERAL DIGITAL SCREENING MAMMOGRAM 3D/2D WITH CAD: 04/18/2020 CLINICAL: Routine screening. Comparison is made to exams dated: 04/14/2019 mammogram, 04/08/2018 mammogram, and 09/03/2016 mammogram - [facility]. The tissue of both breasts is predominantly fatty. Current study was also evaluated with a Computer Aided Detection (CAD) system. No significant masses, calcifications, or other findings are seen in either breast. There has been no significant interval change. IMPRESSION: NEGATIVE There is no mammographic evidence of malignancy. A 1 year screening mammogram is recommended. This exam was interpreted at Station ID: [id number]. NOTE: For mammograms, a report in lay terms will be sent to the patient. Approximately 15% of breast malignancies will not be visualized mammographically. In the management of a palpable breast mass, a negative mammogram must not discourage biopsy of a clinically suspicious lesion. Electronically Signed By: Colby valdez/ruchi:04/19/2020 08:09:44 letter sent: Normal Exam ACR BI-RADS Category 1: Negative 3341F
== END ==
PROVIDERS: Family Provider Nurse Practitioner Family; PCP Nurse Practitioner Family; Referring Provider Nurse Practitioner Family; Visit Provider Nurse Practitioner Family
DX: Z12.31 Encounter for screening mammogram for malignant neoplasm of breast (principal)
CPT/HCPCS: 77063; 77067

== ENCOUNTER → 2021-08-02 10:03 | Outpatient (CLI) | payer OTHER, SELFPAY ==
--- NOTE | 2021-08-02 | DI.MG.S_ITS ---
BILATERAL DIGITAL SCREENING MAMMOGRAM 3D/2D WITH CAD: 08/02/2021 CLINICAL: Routine screening. Comparison is made to exams dated: 04/18/2020 mammogram, 04/14/2019 mammogram, and 04/08/2018 mammogram - [facility]. The tissue of both breasts is predominantly fatty. Current study was also evaluated with a Computer Aided Detection (CAD) system. No significant masses, calcifications, or other findings are seen in either breast. There has been no significant interval change. IMPRESSION: NEGATIVE There is no mammographic evidence of malignancy. A 1 year screening mammogram is recommended. This exam was interpreted at Station ID: [id number]. NOTE: For mammograms, a report in lay terms will be sent to the patient. Approximately 15% of breast malignancies will not be visualized mammographically. In the management of a palpable breast mass, a negative mammogram must not discourage biopsy of a clinically suspicious lesion. Electronically Signed By: Denys vela/ruchi:08/02/2021 12:36:21 letter sent: Normal Exam ACR BI-RADS Category 1: Negative 3341F
== END ==
PROVIDERS: Family Provider Nurse Practitioner Family; PCP Nurse Practitioner Family; Referring Provider Nurse Practitioner Family; Visit Provider Nurse Practitioner Family
DX: Z12.31 Encounter for screening mammogram for malignant neoplasm of breast (principal)
CPT/HCPCS: 77063; 77067

== ENCOUNTER → 2021-08-13 10:42 | Outpatient (CLI) | payer OTHER, SELFPAY ==
[2021-08-13 11:28] LABS: BUN Creatinine Ratio 11.5 (6-22); Blood Urea Nitrogen 9 mg/dL (7-17); Calcium 8.8 mg/dL (8.4-10.2); Carbon Dioxide 30 mmol/L (22-32); Chloride 106 mmol/L (98-107); Estimated Glomerular Filt Rate > 60.0 mL/min (>60); Glucose 98 mg/dL (80-110); HEMOLYSIS < 15 (0-50); Potassium 4.5 mmol/L (3.4-5.1); Sodium 140 mmol/L (137-145)
--- NOTE | 2021-08-13 11:45 | DI.CT.S_ITS ---
PROCEDURE: CT ABDOMEN W CON INDICATIONS: Re-eval hiatal hernia and prior gastric sleeve TECHNIQUE: After the administration of oral and intravenous contrast, 5 mm thick sections acquired from the diaphragms to the iliac crests. 5 mm thick coronal and sagittal reformats were acquired. For radiation dose reduction, the following was used: automated exposure control, adjustment of mA and/or kV according to patient size. COMPARISON: [facility], CT, CT ABDOMEN PELVIS W CON, 03/16/2020, 18:10. FINDINGS: Image quality: Excellent. Lung bases: Lung bases are clear. Heart size is normal. There is a moderate-sized hiatal hernia. Solid organs: Liver is normal in size and enhancement. Moderate hepatic steatosis. Gallbladder is normal . Biliary system is non dilated. Pancreas enhances normally. Spleen is normal in size and enhancement. No adrenal nodules. Kidneys are normal in size, without hydronephrosis. Peritoneum and bowel: There are postsurgical changes in stomach. Contrast enhanced bowel loops appear normal in caliber. Diverticulosis without diverticulitis. No free fluid or air. Nodes and vessels: No retroperitoneal or mesenteric adenopathy by size criteria. Aorta and inferior vena cava are normal in size. Bones: No suspicious bony lesions. No vertebral body compression fractures. Miscellaneous: No ventral hernias. IMPRESSION: 1. Postsurgical changes in stomach (gastric sleeve). There are no findings to suggest leak or bowel obstruction. If clinically indicated, upper GI series may be helpful. 2. Moderate hiatal hernia. 3. Hepatic steatosis. 4. Diverticulosis without diverticulitis. Dictated by: Kaylen Carlos M.D. on 08/13/2021 at 13:58 Approved by: Kaylen Carlos M.D. on 08/13/2021 at 16:19
== END ==
PROVIDERS: Family Provider Nurse Practitioner Family; PCP Student in an Organized Health Care Education/Training Program; Referring Provider Student in an Organized Health Care Education/Training Program; Visit Provider Student in an Organized Health Care Education/Training Program
DX: Z01.812 Encounter for preprocedural laboratory examination (principal); K44.9 Diaphragmatic hernia without obstruction or gangrene; K57.90 Diverticulosis of intestine, part unspecified, without perforation or abscess without bleeding; K76.0 Fatty (change of) liver, not elsewhere classified; Z98.84 Bariatric surgery status
CPT/HCPCS: 36415; 74160; 80048

== ENCOUNTER → 2021-08-21 11:43 | Outpatient (CLI) | payer OTHER, SELFPAY | PROVIDERS: Family Provider Nurse Practitioner Family; PCP Student in an Organized Health Care Education/Training Program; Referring Provider Student in an Organized Health Care Education/Training Program; Visit Provider Student in an Organized Health Care Education/Training Program | DX: Z13.220 Encounter for screening for lipoid disorders (principal) | CPT/HCPCS: 36415; 80061 ==

== ENCOUNTER → 2021-09-20 12:44 | Outpatient (CLI) | payer OTHER, SELFPAY | PROVIDERS: Family Provider Nurse Practitioner Family; PCP Student in an Organized Health Care Education/Training Program; Referring Provider Student in an Organized Health Care Education/Training Program; Visit Provider Student in an Organized Health Care Education/Training Program | DX: Z78.0 Asymptomatic menopausal state (principal); M81.0 Age-related osteoporosis without current pathological fracture; Z82.62 Family history of osteoporosis | CPT/HCPCS: 77080; 77081 ==

== ENCOUNTER → 2021-12-20 15:47 | Outpatient (CLI) | payer OTHER, SELFPAY ==
[2021-12-23 00:20] LABS: H. Pylori Antigen Stool Negative (Negative)
== END ==
PROVIDERS: Family Provider Nurse Practitioner Family; PCP Student in an Organized Health Care Education/Training Program; Referring Provider Student in an Organized Health Care Education/Training Program; Visit Provider Student in an Organized Health Care Education/Training Program
DX: R63.4 Abnormal weight loss (principal)
CPT/HCPCS: 87177; 87338

== ENCOUNTER → 2021-12-21 12:12 | Outpatient (CLI) | payer OTHER, SELFPAY ==
[2021-12-21 12:20] LABS: Appearance Urine UA CLOUDY; Bilirubin Urine UA NEGATIVE (NEGATIVE); Color Urine UA YELLOW; Glucose Urine UA TRACE g/dL (Negative); Ketones Urine UA TRACE (NEGATIVE); Leukocyte Esterase Urine UA NEGATIVE (NEGATIVE); Nitrite Urine UA NEGATIVE (Negative); Occult Blood Urine UA TRACE-LYSED (Negative); Protein Urine UA NEGATIVE (Negative); Specific Gravity Urine UA >=1.030 (1.000-1.035); Urobilinogen Urine UA 0.2 E.U./dL (0.2)
[2021-12-21 12:23] LABS: Amorphous Sediment Urine 4+; Bacteria Urine None Seen; Culture Indicated Urine Cult Not Indicated; RBC Urine None Seen (0-5/HPF); WBC Urine None Seen (0-5/HPF)
== END ==
PROVIDERS: Family Provider Nurse Practitioner Family; PCP Student in an Organized Health Care Education/Training Program; Referring Provider Student in an Organized Health Care Education/Training Program; Visit Provider Student in an Organized Health Care Education/Training Program
DX: N39.0 Urinary tract infection, site not specified (principal)
CPT/HCPCS: 81001

== ENCOUNTER → 2022-05-16 08:51 | Outpatient (CLI) | payer OTHER, SELFPAY ==
[2022-05-16 10:21] LABS: Add Manual Diff / Slide Review NO; Basophils Absolute Auto 100 /uL (0-100); Basophils Percent Auto 1.3 % (0-2); Eosinophils Absolute Auto 300 /uL (0-450); Eosinophils Percent Auto 4.9 % (2-4); Hematocrit 40.1 % (36-46); Hemoglobin 13.1 g/dL (12.0-16.0); Lymphocytes Absolute Auto 2100 /uL (1100-4500); Lymphocytes Percent Auto 35.9 % (25-40); Mean Corpuscular HGB Conc 32.5 % (30-36); Mean Corpuscular Hemoglobin 29.9 PG (26-34); Mean Corpuscular Volume 92.1 fL (80-100); Monocytes Absolute Auto 500 /uL (0-900); Monocytes Percent Auto 8.4 % (3-14); Neutrophils Absolute Auto 2900 /uL (1500-7000); Neutrophils Percent Auto 49.5 % (50-75); Platelet Count 276 X10^3/uL (150-400); Red Blood Cell Count 4.36 X10^6/uL (4.0-5.2); Red Cell Distribution Width 14.7 % (11.6-14.8); White Blood Cell Count 5.8 X10^3/uL (4.5-11.0)
== END ==
PROVIDERS: Family Provider Nurse Practitioner Family; PCP Family Medicine; Referring Provider Family Medicine; Visit Provider Family Medicine
DX: R05.9 Cough, unspecified (principal); R06.02 Shortness of breath; R13.10 Dysphagia, unspecified; R22.1 Localized swelling, mass and lump, neck
CPT/HCPCS: 36415; 85025

== ENCOUNTER → 2022-08-09 14:18 | Outpatient (CLI) | payer OTHER, SELFPAY ==
--- NOTE | 2022-08-09 | DI.MG.S_ITS ---
BILATERAL DIGITAL SCREENING MAMMOGRAM 3D/2D WITH CAD: 08/09/2022 CLINICAL: Routine screening. Comparison is made to exams dated: 08/02/2021 mammogram, 04/18/2020 mammogram, and 04/14/2019 mammogram - [facility]. Both breasts are almost entirely fatty (category a/<25% glandular tissue). Current study was also evaluated with a Computer Aided Detection (CAD) system. No significant masses, calcifications, or other findings are seen in either breast. There has been no significant interval change. IMPRESSION: NEGATIVE There is no mammographic evidence of malignancy. A 1 year screening mammogram is recommended. Based on the Tyrer Cuzick model (a risk assessment model) the patient's lifetime risk is 4.2% and her 10 year risk is 2.1%. According to the ACR, ACS, and NCCN guidelines, an annual breast MRI exam along with mammogram is recommended if the patient's lifetime risk is 20% or greater. This exam was interpreted at Station ID: [id number]. NOTE: For mammograms, a report in lay terms will be sent to the patient. Approximately 15% of breast malignancies will not be visualized mammographically. In the management of a palpable breast mass, a negative mammogram must not discourage biopsy of a clinically suspicious lesion. Electronically Signed By: Denys vela/ruchi:08/09/2022 16:23:18 letter sent: Normal Exam ACR BI-RADS Category 1: Negative 3341F
== END ==
PROVIDERS: Family Provider Nurse Practitioner Family; PCP Family Medicine; Referring Provider Family Medicine; Visit Provider Family Medicine
DX: Z12.31 Encounter for screening mammogram for malignant neoplasm of breast (principal)
CPT/HCPCS: 77063; 77067

== ENCOUNTER → 2022-10-10 07:12 | Outpatient (CLI) | payer OTHER, SELFPAY ==
[2022-10-10 08:00] LABS: Add Manual Diff / Slide Review NO; Basophils Absolute Auto 100 /uL (0-100); Eosinophils Absolute Auto 300 /uL (0-450); Eosinophils Percent Auto 5.5 % (2-4); Hematocrit 39.5 % (36-46); Lymphocytes Absolute Auto 2100 /uL (1100-4500); Mean Corpuscular HGB Conc 32.8 % (30-36); Mean Corpuscular Hemoglobin 29.9 PG (26-34); Monocytes Absolute Auto 400 /uL (0-900); Monocytes Percent Auto 7.6 % (3-14); Neutrophils Absolute Auto 2400 /uL (1500-7000); Neutrophils Percent Auto 44.9 % (50-75); Platelet Count 281 X10^3/uL (150-400); Red Blood Cell Count 4.34 X10^6/uL (4.0-5.2); Red Cell Distribution Width 14.1 % (11.6-14.8); White Blood Cell Count 5.2 X10^3/uL (4.5-11.0)
[2022-10-10 08:09] LABS: BUN Creatinine Ratio 16.2 (6-22); Blood Urea Nitrogen 12 mg/dL (7-17); Calcium 8.5 mg/dL (8.4-10.2); Carbon Dioxide 29 mmol/L (22-32); Chloride 106 mmol/L (98-107); Cholesterol 175 mg/dL (140-199); Estimated Glomerular Filt Rate > 60 mL/min (>60); Glucose 103 mg/dL (80-110); HDL Cholesterol 61 mg/dL (40-60); HEMOLYSIS < 15 (0-50); LDL Cholesterol Calculated 84 mg/dL (<100); Potassium 4.7 mmol/L (3.4-5.1); Sodium 139 mmol/L (137-145); Triglycerides 148 mg/dL (35-150)
== END ==
PROVIDERS: Family Provider Nurse Practitioner Family; PCP Family Medicine; Referring Provider Family Medicine; Visit Provider Family Medicine
DX: G25.0 Essential tremor (principal); K21.00 Gastro-esophageal reflux disease with esophagitis, without bleeding; K44.9 Diaphragmatic hernia without obstruction or gangrene; K57.30 Diverticulosis of large intestine without perforation or abscess without bleeding; K76.0 Fatty (change of) liver, not elsewhere classified
CPT/HCPCS: 36415; 80048; 80061; 85025

== ENCOUNTER → 2022-12-11 07:27 | Outpatient (CLI) | payer OTHER, SELFPAY | PROVIDERS: Family Provider Nurse Practitioner Family; PCP Family Medicine; Visit Provider Nurse Practitioner Family | DX: R30.0 Dysuria (principal) | CPT/HCPCS: 87077; 87086; 87147 ==

== ENCOUNTER → 2022-12-23 | Outpatient (CLI) | payer OTHER, SELFPAY ==
--- NOTE | 2022-12-23 09:56 | DI.RAD.S_ITS ---
Bone Density Report Name: RACHEL JACKSON Age: 67 Sex: Female Ethnicity: White Date of : 1955 Indication: osteopenia; Referring Provider: SHEN RIZVI Study: Bone densitometry was performed. Exam Date: December 23, 2022 Accession number: [id number] Bone Density: Region BMD T-score Z-score Classification AP Spine(L1-L4) 0.964 -0.8 1.1 Normal Femoral Neck (Left) 0.656 -1.7 -0.1 Osteopenia Total Hip (Left) 0.790 -1.2 0.1 Osteopenia Total Forearm (Left) 0.438 -2.6 -0.9 Osteoporosis 1/3 Forearm (Left) 0.519 -2.9 -1.1 Osteoporosis UD Forearm (Left) 0.327 -2.0 -0.7 Osteopenia World Health Organization criteria for BMD impression classify patients as: Normal (T-score at or above -1.0), Osteopenia (T-score between -1.0 and -2.5), or Osteoporosis (T-score at or below -2.5). 10-year Fracture Risk(1): Major Osteoporotic Fracture 9.6% Hip Fracture 1.3% Reported Risk Factors: [place] (), Neck BMD=0.656, BMI=30.2 (1) FRAX(R) Version 3.08. Fracture probability calculated for an untreated patient. Fracture probability may be lower if the patient has received treatment. Previous Exams: -- Region Exam Age BMD T-score BMD Change BMD Change Date g/cm2 vs Baseline vs Previous -- AP Spine (L1-L4) 12/23/2022 67 0.964 -0.8 -0.096 (-9.0%)# -0.096 (-9.0%)# 09/20/2021 66 1.060 0.1 Total Hip(Left) 12/23/2022 67 0.790 -1.2 0.003 (0.4%)# 0.003 (0.4%)# 09/20/2021 66 0.787 -1.3 -- *Denotes significance at 95% confidence level, LSC for AP Spine = 0.022 g/cm2, LSC for Total Hip = 0.027 g/cm2 # Denotes dissimilar scan types or analysis methods Impression: The patient has low bone mass, based on the Left Femoral Neck T-score. The patient has an estimated ten-year risk of hip fracture of 1.3% and an estimated ten-year risk of major fracture of 9.6%, based on the WHO FRAX algorithm. No significant bone loss was observed. Discussion: BONE DENSITY IS LOW AT ONE OR MORE SKELETAL SITES. This patient's lowest T-score is low at one or more skeletal sites. It meets the World Health Organization's (WHO) criteria for low bone mass (T-score between -1.0 and -2.5). The patient's 10-year risk of fracture as calculated by FRAX is less than the threshold where pharmacological therapy is recommended by the National Osteoporosis Foundation (NOF). However, all treatment decisions require clinical judgment and consideration of individual patient factors, including patient preferences, comorbidities, previous drug use, risk factors not captured in the FRAX model (e.g., frailty, falls, vitamin D deficiency, increased bone turnover, interval significant decline in bone density) and possible under or overestimation of fracture risk by FRAX. The patient should follow a healthful lifestyle (good nutrition with adequate calcium and vitamin D, and appropriate weight-bearing exercise). Follow-Up: Consider repeating this study in 2 to 3 years to reassess this patient's status, or sooner if there is some new clinical indication. Reported by: LIZ OSPINA M.D. on 12/23/2022 10:14:00 AM.
[2022-12-23 12:37] LABS: Vitamin D 25 Hydroxy (D3) 61.8 ng/mL (30.0-100.0)
== END ==
PROVIDERS: Family Provider Nurse Practitioner Family; PCP Family Medicine; Referring Provider Family Medicine; Visit Provider Family Medicine
DX: Z78.0 Asymptomatic menopausal state (principal); Z13.820 Encounter for screening for osteoporosis; M85.852 Other specified disorders of bone density and structure, left thigh
CPT/HCPCS: 36415; 77080; 82306

== ENCOUNTER → 2023-02-13 10:43 | Outpatient (CLI) | payer OTHER, SELFPAY ==
--- NOTE | 2023-02-13 | DI.RAD.S_ITS ---
PROCEDURE: XR CERVICAL SPINE 4V OR 5V INDICATIONS: posterior neck PAIN TECHNIQUE: 5 views of the cervical spine acquired. COMPARISON: None. FINDINGS: Bones: Vertebral body height is maintained. At C5-6, there is grade 1 retrolisthesis, disc space narrowing and large anterior osteophyte. Sclerotic facet joints present throughout the exam with degenerative disc disease in the lower cervical spine. Oblique images show foraminal stenosis at C3-4, C4-5 and C5-6 bilaterally Soft tissues: No prevertebral soft tissue swelling. IMPRESSION: Multilevel degenerative disc disease and arthropathy particularly lower cervical spine Approved by: Doe Guzman M.D. on 02/13/2023 at 20:11
== END ==
PROVIDERS: Family Provider Nurse Practitioner Family; PCP Family Medicine; Referring Provider Chiropractor; Visit Provider Chiropractor
DX: M99.11 Subluxation complex (vertebral) of cervical region (principal); M47.812 Spondylosis without myelopathy or radiculopathy, cervical region; M50.30 Other cervical disc degeneration, unspecified cervical region; M48.02 Spinal stenosis, cervical region
CPT/HCPCS: 72050

== ENCOUNTER → 2023-07-24 08:55 | Outpatient (CLI) | payer OTHER, SELFPAY ==
[2023-07-24 09:59] LABS: Add Manual Diff / Slide Review NO; Basophils Absolute Auto 0 /uL (0-100); Eosinophils Absolute Auto 200 /uL (0-450); Eosinophils Percent Auto 5.3 % (2-4); Hematocrit 37.5 % (36-46); Hemoglobin 12.4 g/dL (12.0-16.0); Lymphocytes Absolute Auto 1800 /uL (1100-4500); Mean Corpuscular HGB Conc 33.1 % (30-36); Mean Corpuscular Hemoglobin 30.4 PG (26-34); Mean Corpuscular Volume 91.8 fL (80-100); Monocytes Absolute Auto 400 /uL (0-900); Monocytes Percent Auto 8.9 % (3-14); Neutrophils Absolute Auto 2200 /uL (1500-7000); Neutrophils Percent Auto 46.8 % (50-75); Platelet Count 259 X10^3/uL (150-400); Red Blood Cell Count 4.08 X10^6/uL (4.0-5.2); Red Cell Distribution Width 14.6 % (11.6-14.8); White Blood Cell Count 4.7 X10^3/uL (4.5-11.0)
[2023-07-24 10:12] LABS: BUN Creatinine Ratio 12.8 (6-22); Blood Urea Nitrogen 10 mg/dL (7-17); Calcium 8.9 mg/dL (8.4-10.2); Carbon Dioxide 28 mmol/L (22-32); Chloride 105 mmol/L (98-107); Cholesterol 164 mg/dL (140-199); Estimated Glomerular Filt Rate > 60 mL/min (>60); Glucose 99 mg/dL (80-110); HDL Cholesterol 70 mg/dL (40-60); HEMOLYSIS < 15 (0-50); LDL Cholesterol Calculated 68 mg/dL (<100); Potassium 4.4 mmol/L (3.4-5.1); Sodium 138 mmol/L (137-145); Triglycerides 128 mg/dL (35-150)
== END ==
PROVIDERS: Family Provider Nurse Practitioner Family; PCP Family Medicine; Referring Provider Family Medicine; Visit Provider Family Medicine
DX: Z00.00 Encounter for general adult medical examination without abnormal findings (principal)
CPT/HCPCS: 36415; 80048; 80061; 85025

== ENCOUNTER → 2023-08-10 16:26 | Outpatient (CLI) | payer OTHER, SELFPAY | PROVIDERS: Family Provider Nurse Practitioner Family; PCP Family Medicine; Visit Provider Physician Assistant | DX: J02.9 Acute pharyngitis, unspecified (principal) | CPT/HCPCS: 87070 ==

== ENCOUNTER → 2023-08-21 14:50 | Outpatient (CLI) | payer OTHER, SELFPAY ==
--- NOTE | 2023-08-21 | DI.MG.S_ITS ---
BILATERAL DIGITAL SCREENING MAMMOGRAM 3D/2D WITH CAD: 08/21/2023 CLINICAL: Routine screening. Comparison is made to exams dated: 08/09/2022 mammogram, 08/02/2021 mammogram, and 04/18/2020 mammogram - [facility]. There are scattered areas of fibroglandular density in both breasts (category b / 25%-50% glandular tissue). Current study was also evaluated with a Computer Aided Detection (CAD) system. No significant masses, calcifications, or other findings are seen in either breast. IMPRESSION: NEGATIVE There is no mammographic evidence of malignancy. A 1 year screening mammogram is recommended. Based on the Tyrer Cuzick model (a risk assessment model) the patient's lifetime risk is 6.1% and her 10 year risk is 3.2%. According to the ACR, ACS, and NCCN guidelines, an annual breast MRI exam along with mammogram is recommended if the patient's lifetime risk is 20% or greater. This exam was interpreted at Station ID: [id number]. NOTE: For mammograms, a report in lay terms will be sent to the patient. Approximately 15% of breast malignancies will not be visualized mammographically. In the management of a palpable breast mass, a negative mammogram must not discourage biopsy of a clinically suspicious lesion. Electronically Signed By: Edwina Henry M.D., PH.D benedicto/gregrad:08/21/2023 22:57:38 letter sent: Normal Exam ACR BI-RADS Category 1: Negative 3341F
== END ==
PROVIDERS: Family Provider Nurse Practitioner Family; PCP Family Medicine; Referring Provider Family Medicine; Visit Provider Family Medicine
DX: Z12.31 Encounter for screening mammogram for malignant neoplasm of breast (principal)
CPT/HCPCS: 77063; 77067

== ENCOUNTER → 2024-01-15 16:30 | Outpatient (CLI) | payer OTHER, SELFPAY ==
--- NOTE | 2024-01-15 16:31 | DI.RAD.S_ITS ---
PROCEDURE: XR HIP W PEL IF DONE LT 2V INDICATIONS: fall 6 weeks ago TECHNIQUE: 2 views of the hip were acquired. COMPARISON: [facility], CR, XR HIP W PEL IF DONE RT 2V, 10/27/2019, 12:52. FINDINGS: Bones: No fractures or dislocations. No suspicious bony lesions. The visualized pelvic ring appears intact. Prior right hip arthroplasty. Soft tissues: No suspicious soft tissue calcifications or masses. IMPRESSION: No acute osseous abnormality. Dictated by: Ismael Gonzalez M.D. on 01/15/2024 at 21:25 Approved by: Ismael Gonzalez M.D. on 01/15/2024 at 21:26
== END ==
PROVIDERS: Family Provider Nurse Practitioner Family; PCP Family Medicine; Referring Provider Physician Assistant; Visit Provider Physician Assistant
DX: M25.552 Pain in left hip (principal)
CPT/HCPCS: 73502

== ENCOUNTER → 2024-02-15 09:58 | Outpatient (CLI) | payer OTHER, SELFPAY | PROVIDERS: Family Provider Nurse Practitioner Family; PCP Family Medicine; Visit Provider Physician Assistant Medical | DX: R10.9 Unspecified abdominal pain (principal); R30.0 Dysuria | CPT/HCPCS: 87086 ==

== ENCOUNTER → 2024-08-31 09:42 | Outpatient (CLI) | payer OTHER, SELFPAY ==
--- NOTE | 2024-08-31 09:59 | DI.MG.S_ITS ---
BILATERAL DIGITAL SCREENING MAMMOGRAM 3D/2D WITH CAD: 08/31/2024 CLINICAL: Routine screening. Comparison is made to exams dated: 08/21/2023 mammogram, 08/09/2022 mammogram, and 08/02/2021 mammogram - [facility]. The breasts are almost entirely fatty (category a/<25% glandular tissue). Current study was also evaluated with a Computer Aided Detection (CAD) system. No significant masses, calcifications, or other findings are seen in either breast. There has been no significant interval change. IMPRESSION: NEGATIVE There is no mammographic evidence of malignancy. A 1 year screening mammogram is recommended. Based on the Tyrer Cuzick model (a risk assessment model) the patient's lifetime risk is 3.8% and her 10 year risk is 2.1%. According to the ACR, ACS, and NCCN guidelines, an annual breast MRI exam along with mammogram is recommended if the patient's lifetime risk is 20% or greater. This exam was interpreted at Station ID: [id number]. NOTE: For mammograms, a report in lay terms will be sent to the patient. Approximately 15% of breast malignancies will not be visualized mammographically. In the management of a palpable breast mass, a negative mammogram must not discourage biopsy of a clinically suspicious lesion. Electronically Signed By: Colby valdez/ruchi:08/31/2024 14:44:18 letter sent: Normal Exam ACR BI-RADS Category 1: Negative
[2024-08-31 10:18] LABS: Add Manual Diff / Slide Review NO; Basophils Absolute Auto 100 /uL (0-100); Basophils Percent Auto 1.7 % (0-2); Eosinophils Absolute Auto 300 /uL (0-450); Eosinophils Percent Auto 5.8 % (2-4); Hematocrit 38.3 % (36-46); Hemoglobin 12.6 g/dL (12.0-16.0); Lymphocytes Absolute Auto 1600 /uL (1100-4500); Lymphocytes Percent Auto 35.4 % (25-40); Mean Corpuscular HGB Conc 32.9 % (30-36); Mean Corpuscular Hemoglobin 30.3 PG (26-34); Monocytes Absolute Auto 500 /uL (0-900); Neutrophils Absolute Auto 2100 /uL (1500-7000); Neutrophils Percent Auto 47.1 % (50-75); Platelet Count 282 X10^3/uL (150-400); Red Blood Cell Count 4.16 X10^6/uL (4.0-5.2); Red Cell Distribution Width 14.7 % (11.6-14.8); White Blood Cell Count 4.5 X10^3/uL (4.5-11.0)
[2024-08-31 10:38] LABS: Alanine Aminotransferase 18 IU/L (<35); Albumin 3.8 g/dL (3.5-5.0); Albumin Globulin Ratio 1.4 (1.0-2.8); Alkaline Phosphatase 85 U/L (38-126); Aspartate Aminotransferase 27 IU/L (14-36); BUN Creatinine Ratio 17.2 (6-22); Bilirubin Total 0.6 mg/dL (0.2-1.3); Blood Urea Nitrogen 15 mg/dL (7-17); Carbon Dioxide 29 mmol/L (22-32); Chloride 107 mmol/L (98-107); Cholesterol 185 mg/dL (140-199); Estimated Glomerular Filt Rate > 60 mL/min (>60); Globulin 2.7 g/dL (1.7-4.1); Glucose 93 mg/dL (80-110); HDL Cholesterol 91 mg/dL (40-60); HEMOLYSIS < 15 (0-50); LDL Cholesterol Calculated 79 mg/dL (<100); Potassium 4.6 mmol/L (3.4-5.1); Sodium 139 mmol/L (137-145); Total Protein 6.5 g/dL (6.3-8.2); Triglycerides 76 mg/dL (35-150)
[2024-08-31 14:33] LABS: Vitamin D 25 Hydroxy (D3) 48.6 ng/mL (30.0-100.0)
== END ==
LOC: MAMMO 09:44
PROVIDERS: Family Provider Nurse Practitioner Family; PCP Family Medicine; Referring Provider Family Medicine; Visit Provider Family Medicine
DX: M81.6 Localized osteoporosis [Lequesne] (principal); G25.0 Essential tremor; Z00.00 Encounter for general adult medical examination without abnormal findings; Z12.31 Encounter for screening mammogram for malignant neoplasm of breast; R92.313 Mammographic fatty tissue density, bilateral breasts; K76.0 Fatty (change of) liver, not elsewhere classified
CPT/HCPCS: 36415; 77063; 77067; 80053; 80061; 82306; 85025

== ENCOUNTER → 2025-03-22 16:36 | Outpatient (CLI) | payer OTHER, SELFPAY ==
--- NOTE | 2025-03-22 16:37 | DI.US.S_ITS ---
PROCEDURE: US ABDOMEN LIMITED INDICATIONS: GERD, s/p sleeve, clinical suspicion of cholecystitis TECHNIQUE: Real-time scanning was performed of the abdominal and retroperitoneal organs, with image documentation. Forty-five images. COMPARISON: [facility], CT, CT ABDOMEN W CON, 08/13/2021, 11:49. No prior ultrasound for comparison FINDINGS: Liver: Diffuse increased echogenicity of the liver commonly hepatic steatosis or intrinsic hepatic disease. Liver measures approximately 15.5 cm in CC dimension of the right lobe. No ultrasound evidence of focal hepatic lesion. Gallbladder: No gallstones. No ultrasound evidence of gallbladder wall thickening or pericholecystic fluid. Sonographic Mcguire sign is not delineated. Biliary ducts: Intrahepatic bile ducts are non-dilated. Extrahepatic bile duct caliber measures 4 mm. Normal is 6-7 mm or less in diameter. Pancreas: Visualized portions of the pancreas are sonographically normal. Pancreas body and tail not well visualized due to overlying bowel gas per notes. IMPRESSION: Increased echogenicity of the liver. No gallstones. No ultrasound evidence of cholecystitis. If symptoms persist or worsen, or there is high clinical suspicion of abdominal abnormality, CT could be performed. Dictated by: Renzo Granados M.D. on 03/23/2025 at 12:17 Approved by: Renzo Granados M.D. on 03/23/2025 at 12:25
== END ==
LOC: US 16:36
PROVIDERS: PCP Family Medicine; Referring Provider Surgery; Visit Provider Surgery
DX: K44.9 Diaphragmatic hernia without obstruction or gangrene (principal); K21.00 Gastro-esophageal reflux disease with esophagitis, without bleeding
CPT/HCPCS: 76705